=== PATIENT | male | born 1945 | race African-American/Black ===

== ENCOUNTER 2017-12-12 16:15 | Inpatient (IN) | payer OTHER ==
[~2017-12-12] VITALS: Ht 171.4 cm; Wt 72.6 kg
[2017-12-12] MEDS ORDERED: KETOROLAC 30MG/ML VIAL IV STA (18:46)
[2017-12-12 19:05] LABS: BASOPHILS % 0.4 % (0.0-2.0); EOSINOPHILS % 0.6 % (0.0-5.0); HEMOGLOBIN. 16.1 g/dL (14.0-18.0); LYMPHOCYTES % 10.5 % (20.0-50.0); MEAN CORPUSCULAR HEMOGLOBIN 28.7 pg (28.0-32.0); MEAN CORPUSCULAR VOLUME 87.3 fL (80.0-94.0); MEAN PLATELET VOLUME 6.9 fl (7.4-10.4); MONOCYTES % 9.6 % (2.0-8.0); NEUTROPHILS % 78.9 % (40.0-76.0); PLATELET 217 x1000/uL (130-400); RED BLOOD CELL COUNT 5.61 mill/uL (4.7-6.1); RED CELL DISTRIBUTION WIDTH 15.1 % (11.6-14.6)
[2017-12-12 19:09] LABS: CHLORIDE 102 mEq/L (98-107)
[2017-12-12 20:11] LABS: CLARITY URINE CLOUDY (CLEAR); COLOR URINE DARK YELLOW (YELLOW); KETONES URINE 1+ (NEGATIVE); LEUKOCYTE ESTERASE URINE 3+ (NEGATIVE); NITRITE URINE POSITIVE (NEGATIVE); OCCULT BLOOD URINE 2+ (NEGATIVE); PH URINE 6.5 (4.5-8.0); PROTEIN URINE 2+ (NEGATIVE); SPECIFIC GRAVITY URINE 1.017 (1.005-1.030); UROBILINOGEN URINE >8.0 E.U./dL (0.2-1.0)
[2017-12-12] MEDS ORDERED: SODIUM CHLORIDE 0.9% 1000ML BAG (SEPSIS BOLUS) IV ONE (21:00)
[2017-12-12] MEDS ORDERED: CEFTRIAXONE 1 G PREMIX 50 ML IV ONE (21:00)
[2017-12-12 23:15] VITALS: BP 126/75
[2017-12-12 23:50] VITALS: BP 126/75
[2017-12-13] MEDS ORDERED: TAMS0.4C31 PO (00:27)
[2017-12-13] MEDS ORDERED: WARF5TAB73 PO (00:27)
[2017-12-13] MEDS ORDERED: AMLO10TA80 PO (00:27)
[2017-12-13] MEDS ORDERED: AMOX125S8 PO (00:28)
[2017-12-13] MEDS ORDERED: LISI40TA4 PO (00:28)
[2017-12-13] MEDS ORDERED: LOVA20TA2 PO (00:28)
[2017-12-13] MEDS ORDERED: ONDANSETRON HCL 4MG/2ML VIAL IV PRN (01:15)
[2017-12-13] MEDS ORDERED: CLONIDINE 0.1MG TABLET PO PRN (01:30)
[2017-12-13] MEDS ORDERED: LACTULOSE 20G/30ML UDC PO PRN (01:30)
[2017-12-13] MEDS ORDERED: HYDROCODONE/ACETAMINOPHEN 5/325MG TABLET PO PRN (01:30)
[2017-12-13] MEDS: SODIUM CHLORIDE 0.45% 1,000 ML IV SCH ×3 (02:04→20:47)
[2017-12-13] MEDS: PIPERACILLIN/TAZ 3.375G PREMIX 50 ML IV SCH ×3 (02:04→16:26)
[2017-12-13 04:00] VITALS: BP 96/55
[2017-12-13 07:50] LABS: INR 1.5; PROTHROMBIN TIME 15.3 sec (9.4-11.6)
[2017-12-13 08:00] VITALS: BP 115/78
[2017-12-13] MEDS: PANTOPRAZOLE 40MG DR TABLET PO SCH (08:00)
[2017-12-13] MEDS: AMLODIPINE 10MG TABLET PO SCH (08:36)
[2017-12-13 09:41] LABS: HEMATOCRIT. 42.6 % (42.0-52.0); HEMOGLOBIN. 14.1 g/dL (14.0-18.0); MEAN CORPUSCULAR HEMOGLOBIN 28.5 pg (28.0-32.0); MEAN CORPUSCULAR VOLUME 86.4 fL (80.0-94.0); MEAN PLATELET VOLUME 7.4 fl (7.4-10.4); PLATELET 188 x1000/uL (130-400); RED BLOOD CELL COUNT 4.93 mill/uL (4.7-6.1); RED CELL DISTRIBUTION WIDTH 15.1 % (11.6-14.6)
[2017-12-13 12:00] VITALS: BP 100/72
[2017-12-13 14:41] LABS: PLATELET ESTIMATE NORMAL
[2017-12-13 16:00] VITALS: BP 103/62
[2017-12-13] MEDS ORDERED: WARFARIN SODIUM 5MG TABLET PO NR (18:00)
[2017-12-13] MEDS ORDERED: WARFARIN SODIUM 1MG TABLET PO SCH (18:00)
[2017-12-13 20:00] VITALS: BP 115/69
[2017-12-14] VITALS: BP 123/79
[2017-12-14] MEDS: PIPERACILLIN/TAZ 3.375G PREMIX 50 ML IV SCH ×3 (01:52→17:13)
[2017-12-14 04:00] VITALS: BP 127/80
[2017-12-14 05:30] LABS: INR 1.3; PROTHROMBIN TIME 13.8 sec (9.4-11.6)
[2017-12-14 05:36] LABS: CHLORIDE 105 mEq/L (98-107)
[2017-12-14 05:41] LABS: BASOPHILS % 0.1 % (0.0-2.0); EOSINOPHILS % 3.8 % (0.0-5.0); HEMATOCRIT. 41.8 % (42.0-52.0); HEMOGLOBIN. 13.9 g/dL (14.0-18.0); MEAN CORPUSCULAR HEMOGLOBIN 28.8 pg (28.0-32.0); MEAN CORPUSCULAR VOLUME 86.9 fL (80.0-94.0); MEAN PLATELET VOLUME 7.2 fl (7.4-10.4); MONOCYTES % 13.9 % (2.0-8.0); NEUTROPHILS % 55.2 % (40.0-76.0); PLATELET 191 x1000/uL (130-400); RED BLOOD CELL COUNT 4.81 mill/uL (4.7-6.1); RED CELL DISTRIBUTION WIDTH 15.2 % (11.6-14.6)
[2017-12-14 05:42] LABS: HDL CHOLESTEROL 29 mg/dL (40-59); LDL CHOLESTEROL 51 mg/dL (5-100)
[2017-12-14] MEDS: SODIUM CHLORIDE 0.45% 1,000 ML IV SCH ×2 (07:23→16:37)
[2017-12-14] MEDS: PANTOPRAZOLE 40MG DR TABLET PO SCH (07:23)
[2017-12-14 08:00] VITALS: BP 118/88
[2017-12-14] MEDS: AMLODIPINE 10MG TABLET PO SCH (08:38)
[2017-12-14] MEDS ORDERED: POTASSIUM CHLORIDE 10MEQ TABLET SR PO NR (13:00)
[2017-12-14 13:31] VITALS: BP 111/72
[2017-12-14 16:00] VITALS: BP 131/83
[2017-12-14] MEDS ORDERED: WARFARIN SODIUM 5MG TABLET PO NR (18:00)
[2017-12-15] MEDS ORDERED: FAMOTIDINE 20MG TABLET PO SCH (09:00)
== END 2017-12-14 17:46 | disposition home or self-care (01) | DRG 872 ==
LOC: ER 16:37 → 7WST 21:57 → ENRESERV 22:18
PROVIDERS: ADMIT Internal Medicine; ATTEND Internal Medicine
DX: A41.9 Sepsis, unspecified organism (principal); N39.0 Urinary tract infection, site not specified; E66.9 Obesity, unspecified; I12.9 Hypertensive chronic kidney disease with stage 1 through stage 4 chronic kidney disease, or unspecified chronic kidney disease; N18.9 Chronic kidney disease, unspecified; N40.0 Benign prostatic hyperplasia without lower urinary tract symptoms; Z86.73 Personal history of transient ischemic attack (TIA), and cerebral infarction without residual deficits; Z79.899 Other long term (current) drug therapy; Z68.24 Body mass index [BMI] 24.0-24.9, adult
CPT/HCPCS: 36415; 76770; 80048; 80053; 80061; 81001; 83605; 83690; 85025; 85610; 87040; 87077; 87086; 87186; 93005; 96365; 96375; 99291; J0696; J1885; J2543; J7030; J7050

== ENCOUNTER 2021-07-23 20:48 | Inpatient (IN) | payer OTHER, MEDICAID ==
[~2021-07-23] VITALS: Ht 170.2 cm; Wt 113.9 kg
[~2021-07-23 20:48] MED LIST: AMLO10TA80 PO; LISI40TA13 PO; LOVA20TA2 PO; TAMS0.4C31 PO; WARF-53 PO
[2021-07-23] MEDS ORDERED: CEFTRIAXONE 1 G PREMIX 50 ML IV ONE (21:15)
[2021-07-23] MEDS ORDERED: AZITHROMYCIN 500 MG in DEXT 5% WATER 250 ML IV ONE (21:15)
[2021-07-23 22:04] LABS: BG BASE EXCESS -4.6 mmol/L (-2.0-2.0); BG CARBOXYHEMOGLOBIN 0.3 % (0.5-1.5); BG DEOXYHEMOGLOBIN 11.2 % (0.0-5.0); BG FRACTION INSPIRED OXYGEN 100; BG METHEMOGLOBIN 0.3 % (0.0-1.5); BG OXYGEN SATURATION 88.7 % (92.0-98.5); BG OXYHEMOGLOBIN 88.2 % (94.0-97.0); BG PCO2 32.5 mmHg (35.0-45.0); BG PH 7.385 (7.350-7.450); BG PO2 59.1 mmHg (75.0-100.0); BG SAMPLE SITE LEFT RADIAL; BG TOTAL HEMOGLOBIN 18.9 g/dL (12.0-18.0); BG VENT MODE MASK - NRB
[2021-07-23 22:05] LABS: BASOPHILS % 0.2 % (0.0-2.0); HEMATOCRIT. 51.8 % (42.0-52.0); LYMPHOCYTES % 10.8 % (20.0-50.0); MEAN CORPUSCULAR HEMOGLOBIN 28.7 pg (28.0-32.0); MEAN CORPUSCULAR VOLUME 82.8 fL (80.0-94.0); MEAN PLATELET VOLUME 6.7 fl (7.4-10.4); MONOCYTES % 9.9 % (2.0-8.0); NEUTROPHILS % 79.1 % (40.0-76.0); PLATELET 199 x1000/uL (130-400); RED BLOOD CELL COUNT 6.26 mill/uL (4.7-6.1); RED CELL DISTRIBUTION WIDTH 15.5 % (11.6-14.6)
[2021-07-23 22:11] LABS: CHLORIDE 102 mEq/L (98-107)
[2021-07-23 22:14] LABS: D-DIMER 1.44 mg/L FEU (<0.50); INR 1.1
[2021-07-24] VITALS (36 sets, daily range): BP systolic 91–152; BP diastolic 46–129
[2021-07-24 01:50] LABS: CLARITY URINE CLOUDY (CLEAR); COLOR URINE YELLOW (YELLOW); KETONES URINE TRACE (NEGATIVE); LEUKOCYTE ESTERASE URINE NEGATIVE (NEGATIVE); NITRITE URINE NEGATIVE (NEGATIVE); OCCULT BLOOD URINE 2+ (NEGATIVE); PROTEIN URINE 2+ (NEGATIVE); SPECIFIC GRAVITY URINE 1.017 (1.005-1.030)
[2021-07-24] MEDS ORDERED: LORAZEPAM 0.5MG TABLET PO PRN (11:30)
[2021-07-24] MEDS ORDERED: GUAIFENESIN 200MG/10ML SUGAR FREE UDC PO PRN (11:30)
[2021-07-24] MEDS ORDERED: NA PHOS,M-B/NA PHOS,DI-BA ENEMA 118ML PR PRN (11:30)
[2021-07-24] MEDS ORDERED: MORPHINE SULFATE 2 MG/ML CPJ (NOT FOR IM USE) IV PRN (11:30)
[2021-07-24] MEDS ORDERED: HYDROCODONE/ACETAMINOPHEN 5/325MG TABLET PO PRN (11:30)
[2021-07-24] MEDS ORDERED: DIPHENHYDRAMINE 50MG/ML VIAL IV PRN (11:30)
[2021-07-24] MEDS ORDERED: SODIUM CHLORIDE 0.45% 1,000 ML IV SCH (11:30)
[2021-07-24] MEDS ORDERED: CEFTRIAXONE 1 G PREMIX 50 ML IV SCH (11:30)
[2021-07-24] MEDS ORDERED: DOCUSATE SODIUM 100MG CAPSULE PO PRN (11:30)
[2021-07-24] MEDS ORDERED: MAGNESIUM/ALUMINUM HYDROXIDE/SIMETHICONE 30ML UDC PO PRN (11:30)
[2021-07-24] MEDS ORDERED: ACETAMINOPHEN 650MG SUPP PR PRN (11:30)
[2021-07-24] MEDS ORDERED: NALOXONE HCL 0.4MG/ML VIAL IV PRN (11:45)
[2021-07-24 12:03] LABS: BG BASE EXCESS -5.6 mmol/L (-2.0-2.0); BG CARBOXYHEMOGLOBIN 0.3 % (0.5-1.5); BG DEOXYHEMOGLOBIN 4.1 % (0.0-5.0); BG FRACTION INSPIRED OXYGEN 100; BG HCO3 ACT 18.3 mmol/L (22.0-26.0); BG METHEMOGLOBIN 0.5 % (0.0-1.5); BG OXYGEN SATURATION 95.9 % (92.0-98.5); BG OXYHEMOGLOBIN 95.1 % (94.0-97.0); BG PCO2 32.9 mmHg (35.0-45.0); BG PH 7.364 (7.350-7.450); BG PO2 82.7 mmHg (75.0-100.0); BG SAMPLE SITE LEFT RADIAL; BG TOTAL HEMOGLOBIN 19.7 g/dL (12.0-18.0); BG VENT MODE HIGH FLOW
[2021-07-24 12:55] LABS: BASOPHILS % 0.2 % (0.0-2.0); LYMPHOCYTES % 8.1 % (20.0-50.0); MEAN CORPUSCULAR HEMOGLOBIN 28.8 pg (28.0-32.0); MEAN CORPUSCULAR VOLUME 83.5 fL (80.0-94.0); MEAN PLATELET VOLUME 6.6 fl (7.4-10.4); MONOCYTES % 4.4 % (2.0-8.0); NEUTROPHILS % 87.3 % (40.0-76.0); PLATELET 239 x1000/uL (130-400); RED BLOOD CELL COUNT 6.23 mill/uL (4.7-6.1); RED CELL DISTRIBUTION WIDTH 15.7 % (11.6-14.6)
[2021-07-24 13:01] LABS: CHLORIDE 100 mEq/L (98-107)
[2021-07-24 13:14] LABS: CLARITY URINE CLOUDY (CLEAR); COLOR URINE YELLOW (YELLOW); KETONES URINE NEGATIVE (NEGATIVE); LEUKOCYTE ESTERASE URINE NEGATIVE (NEGATIVE); NITRITE URINE NEGATIVE (NEGATIVE); OCCULT BLOOD URINE 2+ (NEGATIVE); PROTEIN URINE 2+ (NEGATIVE); SPECIFIC GRAVITY URINE 1.016 (1.005-1.030)
[2021-07-24] MEDS: AZITHROMYCIN 500 MG in DEXT 5% WATER 250 ML IV SCH (13:18)
[2021-07-24] MEDS: CEFTRIAXONE 1,000 MG in DEXTROSE 5% WATER 50 ML IV SCH (13:18)
[2021-07-24] MEDS: DEXAMETHASONE 10 MG/ML VIAL IV SCH (13:18)
[2021-07-24] MEDS: ENOXAPARIN 30MG/0.3ML SYR SUBCUT SCH (13:23)
[2021-07-24 13:40] LABS: *AMPHETAMINES SCREEN URINE NEGATIVE (NEGATIVE); *BARBITURATES SCREEN URINE NEGATIVE (NEGATIVE); *BENZODIAZEPINES SCREEN URINE NEGATIVE (NEGATIVE); *COCAINE SCREEN URINE NEGATIVE (NEGATIVE); METHADONE URINE SCREEN NEGATIVE (NEGATIVE); OPIATES URINE SCREEN NEGATIVE (NEGATIVE)
[2021-07-24 13:41] LABS: CANNABINOID URINE SCREEN NEGATIVE (NEGATIVE); PHENCYCLIDINE URINE SCREEN NEGATIVE (NEGATIVE)
[2021-07-24] MEDS: SODIUM CHLORIDE 0.9% 1,000 ML IV SCH (15:06)
[2021-07-24] MEDS ORDERED: HYDR25TA PO (16:08)
[2021-07-24] MEDS ORDERED: NAPR-681 MT (16:08)
[2021-07-24 16:40] LABS: CREATINE KINASE 440 IU/L (39-308)
[2021-07-24 16:41] LABS: CREATINE KINASE MB FRACTION 5.7 ng/mL (0.5-3.6)
[2021-07-24] MEDS: ALBUTEROL 6.7GM HFA INHALER ORI SCH (21:15)
[2021-07-24 23:11] LABS: CREATINE KINASE 356 IU/L (39-308)
[2021-07-24 23:13] LABS: CREATINE KINASE MB FRACTION 5.2 ng/mL (0.5-3.6)
[2021-07-25] VITALS (44 sets, daily range): BP systolic 102–157; BP diastolic 65–141
[2021-07-25] MEDS: ALBUTEROL 6.7GM HFA INHALER ORI SCH ×4 (01:43→22:51)
[2021-07-25 05:25] LABS: HEMATOCRIT. 47.4 % (42.0-52.0); HEMOGLOBIN. 16.6 g/dL (14.0-18.0); MEAN CORPUSCULAR HEMOGLOBIN 28.9 pg (28.0-32.0); MEAN CORPUSCULAR VOLUME 82.5 fL (80.0-94.0); MEAN PLATELET VOLUME 6.9 fl (7.4-10.4); PLATELET 220 x1000/uL (130-400); RED BLOOD CELL COUNT 5.75 mill/uL (4.7-6.1); RED CELL DISTRIBUTION WIDTH 15.6 % (11.6-14.6)
[2021-07-25 05:36] LABS: CHLORIDE 103 mEq/L (98-107)
[2021-07-25 05:48] LABS: PHOSPHORUS 4.6 mg/dL (2.5-4.9)
[2021-07-25 05:49] LABS: CREATINE KINASE 306 IU/L (39-308); LDL CHOLESTEROL 42 mg/dL (5-100)
[2021-07-25 05:50] LABS: HDL CHOLESTEROL 14 mg/dL (40-59); T4 FREE 1.25 ng/dL (0.76-1.46)
[2021-07-25] MEDS: SODIUM CHLORIDE 0.9% 1,000 ML IV SCH (05:50)
[2021-07-25] MEDS: FAMOTIDINE 20MG/2ML VIAL IV SCH (08:43)
[2021-07-25] MEDS: DEXAMETHASONE 10 MG/ML VIAL IV SCH (08:43)
[2021-07-25 10:08] LABS: BG BASE EXCESS -4.2 mmol/L (-2.0-2.0); BG CARBOXYHEMOGLOBIN 0.3 % (0.5-1.5); BG DEOXYHEMOGLOBIN 3.7 % (0.0-5.0); BG FRACTION INSPIRED OXYGEN 100; BG HCO3 ACT 20.3 mmol/L (22.0-26.0); BG METHEMOGLOBIN 0.2 % (0.0-1.5); BG OXYGEN SATURATION 96.3 % (92.0-98.5); BG OXYHEMOGLOBIN 95.8 % (94.0-97.0); BG PCO2 36.5 mmHg (35.0-45.0); BG PH 7.364 (7.350-7.450); BG PO2 85.7 mmHg (75.0-100.0); BG SAMPLE SITE RIGHT BRACHIAL; BG TOTAL HEMOGLOBIN 17.7 g/dL (12.0-18.0); BG VENT MODE HIGH FLOW
[2021-07-25] MEDS: AZITHROMYCIN 500 MG in DEXT 5% WATER 250 ML IV SCH (12:00)
[2021-07-25] MEDS: ENOXAPARIN 30MG/0.3ML SYR SUBCUT SCH (12:01)
[2021-07-25] MEDS ORDERED: ENOXAPARIN 40MG/0.4ML SYR SUBCUT SCH (13:00)
[2021-07-25] MEDS: CEFTRIAXONE 1,000 MG in DEXTROSE 5% WATER 50 ML IV SCH (13:01)
[2021-07-25 13:24] LABS: PLATELET ESTIMATE NORMAL
[2021-07-26] VITALS: BP 128/89
[2021-07-26 04:00] VITALS: BP 135/87
[2021-07-26 05:35] LABS: HEMATOCRIT. 46.5 % (42.0-52.0); MEAN CORPUSCULAR HEMOGLOBIN 28.4 pg (28.0-32.0); MEAN CORPUSCULAR VOLUME 82.5 fL (80.0-94.0); MEAN PLATELET VOLUME 6.5 fl (7.4-10.4); PLATELET 252 x1000/uL (130-400); RED BLOOD CELL COUNT 5.64 mill/uL (4.7-6.1); RED CELL DISTRIBUTION WIDTH 15.5 % (11.6-14.6)
[2021-07-26] MEDS: ALBUTEROL 6.7GM HFA INHALER ORI SCH ×4 (06:09→17:04)
[2021-07-26] MEDS: SODIUM CHLORIDE 0.9% 1,000 ML IV SCH ×2 (06:11→12:58)
[2021-07-26 06:23] LABS: PHOSPHORUS 4.1 mg/dL (2.5-4.9)
[2021-07-26 07:45] LABS: BG BASE EXCESS -4.1 mmol/L (-2.0-2.0); BG CARBOXYHEMOGLOBIN 0.1 % (0.5-1.5); BG DEOXYHEMOGLOBIN 4.8 % (0.0-5.0); BG HCO3 ACT 20.5 mmol/L (22.0-26.0); BG METHEMOGLOBIN 0.4 % (0.0-1.5); BG OXYGEN SATURATION 95.2 % (92.0-98.5); BG OXYHEMOGLOBIN 94.7 % (94.0-97.0); BG PCO2 36.9 mmHg (35.0-45.0); BG PH 7.363 (7.350-7.450); BG PO2 79.7 mmHg (75.0-100.0); BG SAMPLE SITE RIGHT RADIAL; BG TOTAL HEMOGLOBIN 17.5 g/dL (12.0-18.0); BG VENT MODE VAPOTHERM
[2021-07-26 08:00] VITALS: BP 128/88
[2021-07-26] MEDS: FAMOTIDINE 20MG/2ML VIAL IV SCH (09:04)
[2021-07-26] MEDS: DEXAMETHASONE 10 MG/ML VIAL IV SCH (09:04)
[2021-07-26 09:10] LABS: IMMUNOGLOBULIN A 671 mg/dL (61-437); IMMUNOGLOBULIN G 1365 mg/dL (603-1613); IMMUNOGLOBULIN M 37 mg/dL (15-143)
[2021-07-26 12:00] VITALS: BP 132/82
[2021-07-26] MEDS: AZITHROMYCIN 500 MG in DEXT 5% WATER 250 ML IV SCH ×2 (13:00→15:23)
[2021-07-26] MEDS ORDERED: ENOXAPARIN 80MG/0.8ML SYR SUBCUT SCH (13:00)
[2021-07-26] MEDS: CEFTRIAXONE 1,000 MG in DEXTROSE 5% WATER 50 ML IV SCH (14:06)
[2021-07-26 15:21] LABS: PLATELET ESTIMATE NORMAL
[2021-07-26 16:00] VITALS: BP 131/84
[2021-07-26 20:00] VITALS: BP 159/87
[2021-07-27] VITALS: BP 155/92
[2021-07-27 04:00] VITALS: BP 165/96
[2021-07-27] MEDS: ALBUTEROL 6.7GM HFA INHALER ORI SCH ×4 (05:17→23:02)
[2021-07-27] MEDS: CLONIDINE 0.1MG TABLET PO PRN ×2 (05:18→23:00)
[2021-07-27 08:00] VITALS: BP 145/87
[2021-07-27] MEDS: DEXAMETHASONE 10 MG/ML VIAL IV SCH (08:56)
[2021-07-27] MEDS: ENOXAPARIN 100MG/ML SYR SUBCUT SCH (08:56)
[2021-07-27] MEDS: SODIUM CHLORIDE 0.9% 1,000 ML IV SCH ×2 (08:57→22:34)
[2021-07-27] MEDS: FAMOTIDINE 20MG/2ML VIAL IV SCH (08:57)
[2021-07-27 09:23] LABS: BG BASE EXCESS -3.1 mmol/L (-2.0-2.0); BG DEOXYHEMOGLOBIN 12.3 % (0.0-5.0); BG FRACTION INSPIRED OXYGEN 100; BG HCO3 ACT 20.4 mmol/L (22.0-26.0); BG METHEMOGLOBIN 0.3 % (0.0-1.5); BG OXYGEN SATURATION 87.7 % (92.0-98.5); BG OXYHEMOGLOBIN 87.4 % (94.0-97.0); BG PCO2 32.7 mmHg (35.0-45.0); BG PH 7.412 (7.350-7.450); BG PO2 52.2 mmHg (75.0-100.0); BG SAMPLE SITE LEFT RADIAL; BG TOTAL HEMOGLOBIN 16.7 g/dL (12.0-18.0); BG VENT MODE HIGH FLOW
[2021-07-27 10:44] LABS: BASOPHILS % 0.1 % (0.0-2.0); HEMATOCRIT. 45.8 % (42.0-52.0); HEMOGLOBIN. 16.1 g/dL (14.0-18.0); LYMPHOCYTES % 7.4 % (20.0-50.0); MEAN CORPUSCULAR HEMOGLOBIN 29.5 pg (28.0-32.0); MEAN CORPUSCULAR VOLUME 83.7 fL (80.0-94.0); MEAN PLATELET VOLUME 6.3 fl (7.4-10.4); NEUTROPHILS % 79.5 % (40.0-76.0); PLATELET 265 x1000/uL (130-400); RED BLOOD CELL COUNT 5.48 mill/uL (4.7-6.1); RED CELL DISTRIBUTION WIDTH 15.6 % (11.6-14.6)
[2021-07-27 10:56] LABS: PHOSPHORUS 3.2 mg/dL (2.5-4.9)
[2021-07-27 12:00] VITALS: BP 149/94
[2021-07-27] MEDS: AZITHROMYCIN 500 MG in DEXT 5% WATER 250 ML IV SCH (14:10)
[2021-07-27] MEDS: CEFTRIAXONE 1,000 MG in DEXTROSE 5% WATER 50 ML IV SCH (14:10)
[2021-07-27 14:33] LABS: BG BASE EXCESS -4.1 mmol/L (-2.0-2.0); BG DEOXYHEMOGLOBIN 3.2 % (0.0-5.0); BG FRACTION INSPIRED OXYGEN 100; BG HCO3 ACT 20.2 mmol/L (22.0-26.0); BG METHEMOGLOBIN 0.2 % (0.0-1.5); BG OXYGEN SATURATION 96.8 % (92.0-98.5); BG OXYHEMOGLOBIN 95.6 % (94.0-97.0); BG PCO2 35.5 mmHg (35.0-45.0); BG PH 7.374 (7.350-7.450); BG PO2 90.8 mmHg (75.0-100.0); BG SAMPLE SITE RIGHT RADIAL; BG TOTAL HEMOGLOBIN 17.1 g/dL (12.0-18.0); BG VENT MODE VAPOTHERM
[2021-07-27] MEDS ORDERED: MAGNESIUM 2 G PREMIX 50 ML IV NR (15:30)
[2021-07-27 16:00] VITALS: BP 152/88
[2021-07-28] VITALS (35 sets, daily range): BP systolic 64–216; BP diastolic 39–117
[2021-07-28] MEDS: ALBUTEROL 6.7GM HFA INHALER ORI SCH ×2 (06:00→21:05)
[2021-07-28 06:48] LABS: HEMATOCRIT. 50.8 % (42.0-52.0); MEAN CORPUSCULAR HEMOGLOBIN 27.9 pg (28.0-32.0); MEAN CORPUSCULAR VOLUME 83.5 fL (80.0-94.0); MEAN PLATELET VOLUME 6.1 fl (7.4-10.4); PLATELET 277 x1000/uL (130-400); RED BLOOD CELL COUNT 6.09 mill/uL (4.7-6.1); RED CELL DISTRIBUTION WIDTH 15.9 % (11.6-14.6)
[2021-07-28] MEDS ORDERED: ETOMIDATE 2MG/ML 10ML VIAL IV ONE (08:33)
[2021-07-28] MEDS ORDERED: SUCCINYLCHOLINE CHLORIDE 200MG/10ML IV ONE (08:33)
[2021-07-28] MEDS: DEXAMETHASONE 10 MG/ML VIAL IV SCH (08:53)
[2021-07-28] MEDS: FAMOTIDINE 20MG/2ML VIAL IV SCH (08:53)
[2021-07-28] MEDS: ENOXAPARIN 100MG/ML SYR SUBCUT SCH (08:54)
[2021-07-28 10:10] LABS: BG BASE EXCESS -4.8 mmol/L (-2.0-2.0); BG CARBOXYHEMOGLOBIN 0.3 % (0.5-1.5); BG DEOXYHEMOGLOBIN 12.1 % (0.0-5.0); BG FRACTION INSPIRED OXYGEN 100; BG HCO3 ACT 18.1 mmol/L (22.0-26.0); BG METHEMOGLOBIN 0.3 % (0.0-1.5); BG OXYGEN SATURATION 87.8 % (92.0-98.5); BG OXYHEMOGLOBIN 87.3 % (94.0-97.0); BG PCO2 29.7 mmHg (35.0-45.0); BG PH 7.402 (7.350-7.450); BG PO2 53.9 mmHg (75.0-100.0); BG SAMPLE SITE RIGHT RADIAL; BG TOTAL HEMOGLOBIN 19.5 g/dL (12.0-18.0); BG VENT MODE HIGH FLOW
[2021-07-28] MEDS: SODIUM CHLORIDE 0.9% 1,000 ML IV SCH (10:36)
[2021-07-28 12:40] LABS: PLATELET ESTIMATE NORMAL
[2021-07-28] MEDS ORDERED: LORAZEPAM 2MG/ML CPJ IV PRN (13:15)
[2021-07-28] MEDS ORDERED: HYDRALAZINE 20MG/ML VIAL IV SCH (13:15)
[2021-07-28] MEDS ORDERED: HYDRALAZINE 20MG/ML VIAL IV PRN (13:15)
[2021-07-28] MEDS: CEFTRIAXONE 1,000 MG in DEXTROSE 5% WATER 50 ML IV SCH (14:44)
[2021-07-28] MEDS ORDERED: PROPOFOL 10MG/ML 100ML 100 ML IV PRN (16:00)
[2021-07-28] MEDS: SODIUM CHLORIDE 0.9% IV PRN (16:53)
[2021-07-28] MEDS: MIDAZOLAM HCL IV PRN (16:53)
[2021-07-28] MEDS ORDERED: NOREPINEPHRINE 8MG/250ML PMX 250 ML IV PRN (17:15)
[2021-07-28] MEDS: MIDODRINE HCL 5MG TABLET PO SCH (17:15)
[2021-07-28] MEDS ORDERED: SODIUM CHLORIDE 0.9% 500 ML IV NR (17:15)
[2021-07-28] MEDS ORDERED: NOREPINEPHRINE 8 MG in DEXTROSE 5% WATER 250 ML IV PRN (17:30)
[2021-07-28] MEDS: PHENYLEPHRINE 50 MG in DEXT 5% WATER 245 ML IV PRN (17:35)
[2021-07-28 17:39] LABS: BG BASE EXCESS -4.9 mmol/L (-2.0-2.0); BG CARBOXYHEMOGLOBIN 0.7 % (0.5-1.5); BG DEOXYHEMOGLOBIN 18.9 % (0.0-5.0); BG HCO3 ACT 20.7 mmol/L (22.0-26.0); BG OXYHEMOGLOBIN 80.4 % (94.0-97.0); BG PCO2 40.5 mmHg (35.0-45.0); BG PH 7.326 (7.350-7.450); BG PO2 48.7 mmHg (75.0-100.0); BG SAMPLE SITE RIGHT RADIAL; BG TOTAL HEMOGLOBIN 17.6 g/dL (12.0-18.0); BG VENT MODE VENT - AC
[2021-07-28] MEDS: PROPOFOL 10MG/ML 100ML 100 ML IV PRN ×3 (18:23→21:51)
[2021-07-28] MEDS: FENTANYL CITRATE/PF 2,500 MCG in SODIUM CHLORIDE 0.9% 200 ML IV PRN (20:17)
[2021-07-29] VITALS (96 sets, daily range): BP systolic 85–165; BP diastolic 54–99
[2021-07-29] MEDS: PROPOFOL 10MG/ML 100ML 100 ML IV PRN ×5 (01:27→15:00)
[2021-07-29] MEDS: MIDAZOLAM HCL IV PRN ×3 (01:37→20:08)
[2021-07-29] MEDS: SODIUM CHLORIDE 0.9% IV PRN ×3 (01:37→20:08)
[2021-07-29 04:52] LABS: HEMATOCRIT. 51.2 % (42.0-52.0); HEMOGLOBIN. 17.2 g/dL (14.0-18.0); MEAN CORPUSCULAR HEMOGLOBIN 28.6 pg (28.0-32.0); MEAN CORPUSCULAR VOLUME 85.1 fL (80.0-94.0); MEAN PLATELET VOLUME 6.2 fl (7.4-10.4); PLATELET 272 x1000/uL (130-400); RED BLOOD CELL COUNT 6.02 mill/uL (4.7-6.1); RED CELL DISTRIBUTION WIDTH 16.2 % (11.6-14.6)
[2021-07-29 05:08] LABS: PHOSPHORUS 4.8 mg/dL (2.5-4.9)
[2021-07-29] MEDS: FAMOTIDINE 20MG/2ML VIAL IV SCH (08:05)
[2021-07-29] MEDS: ENOXAPARIN 100MG/ML SYR SUBCUT SCH ×2 (08:05→21:25)
[2021-07-29] MEDS: MIDODRINE HCL 5MG TABLET PO SCH ×3 (08:05→16:52)
[2021-07-29] MEDS: DEXAMETHASONE 10 MG/ML VIAL IV SCH (08:05)
[2021-07-29] MEDS ORDERED: LIDOCAINE HCL 1% 20ML VIAL (Pyxis) INJ ONE (08:32)
[2021-07-29] MEDS: ALBUTEROL 6.7GM HFA INHALER ORI SCH ×3 (08:35→20:41)
[2021-07-29 09:00] LABS: NUCLEATED RED BLOOD CELLS 1 /100 WBC; PLATELET ESTIMATE NORMAL
[2021-07-29 09:26] LABS: BG CARBOXYHEMOGLOBIN 0.3 % (0.5-1.5); BG DEOXYHEMOGLOBIN 4.1 % (0.0-5.0); BG FRACTION INSPIRED OXYGEN 100; BG HCO3 ACT 24.6 mmol/L (22.0-26.0); BG METHEMOGLOBIN 0.6 % (0.0-1.5); BG OXYGEN SATURATION 95.9 % (92.0-98.5); BG PCO2 52.5 mmHg (35.0-45.0); BG PH 7.289 (7.350-7.450); BG PO2 88.8 mmHg (75.0-100.0); BG SAMPLE SITE RIGHT BRACHIAL; BG VENT MODE VENT - AC
[2021-07-29] MEDS ORDERED: SODIUM BICARBONATE 8.4% 1 MEQ/ML 50ML SYR IV ONE (09:45)
[2021-07-29] MEDS: PHENYLEPHRINE 50 MG in DEXT 5% WATER 245 ML IV PRN (09:47)
[2021-07-29 11:29] LABS: BG BASE EXCESS -0.3 mmol/L (-2.0-2.0); BG CARBOXYHEMOGLOBIN 0.4 % (0.5-1.5); BG DEOXYHEMOGLOBIN 4.7 % (0.0-5.0); BG FRACTION INSPIRED OXYGEN 100; BG HCO3 ACT 26.7 mmol/L (22.0-26.0); BG METHEMOGLOBIN 0.5 % (0.0-1.5); BG OXYGEN SATURATION 95.3 % (92.0-98.5); BG OXYHEMOGLOBIN 94.4 % (94.0-97.0); BG PCO2 51.5 mmHg (35.0-45.0); BG PH 7.332 (7.350-7.450); BG PO2 78.9 mmHg (75.0-100.0); BG SAMPLE SITE LEFT RADIAL; BG TOTAL HEMOGLOBIN 18.6 g/dL (12.0-18.0); BG TOTAL RESPIRATORY RATE 27 b/min; BG VENT MODE VENT - AC
[2021-07-29] MEDS: PIPERACILLIN/TAZOBACTAM 3.375 G in DEXTROSE 5% WATER 50 ML IV SCH ×2 (14:48→21:25)
[2021-07-29] MEDS: FENTANYL CITRATE/PF 2,500 MCG in SODIUM CHLORIDE 0.9% 200 ML IV PRN (21:56)
[2021-07-30] VITALS (117 sets, daily range): BP systolic 77–139; BP diastolic 47–89
[2021-07-30] MEDS: ALBUTEROL 6.7GM HFA INHALER ORI SCH ×4 (00:55→21:03)
[2021-07-30] MEDS ORDERED: MIDAZOLAM HCL 100 MG in SODIUM CHLORIDE 0.9% 80 ML IV PRN (03:15)
[2021-07-30 05:27] LABS: HEMATOCRIT. 48.5 % (42.0-52.0); HEMOGLOBIN. 16.4 g/dL (14.0-18.0); MEAN CORPUSCULAR HEMOGLOBIN 28.2 pg (28.0-32.0); MEAN CORPUSCULAR VOLUME 83.5 fL (80.0-94.0); MEAN PLATELET VOLUME 6.6 fl (7.4-10.4); PLATELET 246 x1000/uL (130-400)
[2021-07-30] MEDS: PROPOFOL 10MG/ML 100ML 100 ML IV PRN ×5 (05:30→18:40)
[2021-07-30 05:51] LABS: PHOSPHORUS 4.6 mg/dL (2.5-4.9)
[2021-07-30] MEDS: PIPERACILLIN/TAZOBACTAM 3.375 G in DEXTROSE 5% WATER 50 ML IV SCH ×3 (05:57→21:18)
[2021-07-30] MEDS: SODIUM CHLORIDE 0.9% IV PRN (06:34)
[2021-07-30] MEDS: MIDAZOLAM HCL IV PRN (06:34)
[2021-07-30 06:42] LABS: BG BASE EXCESS -0.2 mmol/L (-2.0-2.0); BG CARBOXYHEMOGLOBIN 1.1 % (0.5-1.5); BG DEOXYHEMOGLOBIN 21.3 % (0.0-5.0); BG FRACTION INSPIRED OXYGEN 100; BG METHEMOGLOBIN 0.2 % (0.0-1.5); BG OXYGEN SATURATION 78.4 % (92.0-98.5); BG OXYHEMOGLOBIN 77.4 % (94.0-97.0); BG PCO2 42.7 mmHg (35.0-45.0); BG PH 7.385 (7.350-7.450); BG PO2 43.3 mmHg (75.0-100.0); BG SAMPLE SITE LEFT BRACHIAL; BG VENT MODE VENT - AC
[2021-07-30] MEDS ORDERED: DILTIAZEM HCL 5MG/ML 5ML VIAL IV NR (07:15)
[2021-07-30] MEDS: ENOXAPARIN 100MG/ML SYR SUBCUT SCH ×2 (08:12→21:18)
[2021-07-30] MEDS: DEXAMETHASONE 10 MG/ML VIAL IV SCH (08:12)
[2021-07-30] MEDS: MIDODRINE HCL 5MG TABLET PO SCH ×3 (08:12→16:04)
[2021-07-30] MEDS: FAMOTIDINE 20MG/2ML VIAL IV SCH (08:12)
[2021-07-30 09:07] LABS: NUCLEATED RED BLOOD CELLS 9 /100 WBC; PLATELET ESTIMATE NORMAL
[2021-07-30] MEDS: DILTIAZEM HCL 125 MG in DEXT 5% WATER 100 ML IV PRN (09:28)
[2021-07-30 11:33] LABS: BG BASE EXCESS -5.8 mmol/L (-2.0-2.0); BG CARBOXYHEMOGLOBIN 0.1 % (0.5-1.5); BG DEOXYHEMOGLOBIN 9.4 % (0.0-5.0); BG FRACTION INSPIRED OXYGEN 100; BG HCO3 ACT 21.2 mmol/L (22.0-26.0); BG METHEMOGLOBIN 0.6 % (0.0-1.5); BG OXYGEN SATURATION 90.5 % (92.0-98.5); BG OXYHEMOGLOBIN 89.9 % (94.0-97.0); BG PCO2 46.7 mmHg (35.0-45.0); BG PH 7.275 (7.350-7.450); BG PO2 64.4 mmHg (75.0-100.0); BG SAMPLE SITE RIGHT RADIAL; BG TOTAL HEMOGLOBIN 18.4 g/dL (12.0-18.0); BG VENT MODE VENT - AC
[2021-07-30] MEDS: FENTANYL CITRATE/PF 2,500 MCG in SODIUM CHLORIDE 0.9% 200 ML IV PRN (12:20)
[2021-07-30] MEDS ORDERED: SODIUM BICARBONATE 8.4% 1 MEQ/ML 50ML SYR IV NR (13:45)
[2021-07-30] MEDS: PHENYLEPHRINE 50 MG in DEXT 5% WATER 245 ML IV PRN (13:53)
[2021-07-30 15:24] LABS: BG BASE EXCESS -1.6 mmol/L (-2.0-2.0); BG CARBOXYHEMOGLOBIN 0.7 % (0.5-1.5); BG DEOXYHEMOGLOBIN 8.8 % (0.0-5.0); BG FRACTION INSPIRED OXYGEN 100; BG HCO3 ACT 26.1 mmol/L (22.0-26.0); BG METHEMOGLOBIN 0.5 % (0.0-1.5); BG OXYGEN SATURATION 91.1 % (92.0-98.5); BG PCO2 54.5 mmHg (35.0-45.0); BG PH 7.298 (7.350-7.450); BG PO2 63.4 mmHg (75.0-100.0); BG SAMPLE SITE RIGHT RADIAL; BG TOTAL HEMOGLOBIN 17.6 g/dL (12.0-18.0); BG VENT MODE VENT - AC
[2021-07-30] MEDS: MIDAZOLAM HCL 100 MG in SODIUM CHLORIDE 0.9% 80 ML IV PRN (15:26)
[2021-07-31] VITALS (100 sets, daily range): BP systolic 90–147; BP diastolic 46–97
[2021-07-31] MEDS: FENTANYL CITRATE/PF 2,500 MCG in SODIUM CHLORIDE 0.9% 200 ML IV PRN ×2 (02:34→15:34)
[2021-07-31] MEDS: ALBUTEROL 6.7GM HFA INHALER ORI SCH ×3 (02:34→14:28)
[2021-07-31] MEDS: MIDAZOLAM HCL 100 MG in SODIUM CHLORIDE 0.9% 80 ML IV PRN ×2 (02:35→14:42)
[2021-07-31] MEDS: PROPOFOL 10MG/ML 100ML 100 ML IV PRN ×2 (02:38→15:36)
[2021-07-31] MEDS: PIPERACILLIN/TAZOBACTAM 3.375 G in DEXTROSE 5% WATER 50 ML IV SCH ×3 (05:29→22:37)
[2021-07-31 06:18] LABS: HEMATOCRIT. 48.6 % (42.0-52.0); HEMOGLOBIN. 16.4 g/dL (14.0-18.0); MEAN CORPUSCULAR HEMOGLOBIN 28.4 pg (28.0-32.0); MEAN CORPUSCULAR VOLUME 84.3 fL (80.0-94.0); PLATELET 299 x1000/uL (130-400); RED BLOOD CELL COUNT 5.76 mill/uL (4.7-6.1); RED CELL DISTRIBUTION WIDTH 16.1 % (11.6-14.6)
[2021-07-31 06:32] LABS: PHOSPHORUS 5.2 mg/dL (2.5-4.9)
[2021-07-31 07:50] LABS: BG CARBOXYHEMOGLOBIN 1.1 % (0.5-1.5); BG DEOXYHEMOGLOBIN 9.9 % (0.0-5.0); BG HCO3 ACT 26.2 mmol/L (22.0-26.0); BG METHEMOGLOBIN 0.4 % (0.0-1.5); BG OXYGEN SATURATION 89.9 % (92.0-98.5); BG OXYHEMOGLOBIN 88.6 % (94.0-97.0); BG PCO2 52.6 mmHg (35.0-45.0); BG PH 7.315 (7.350-7.450); BG SAMPLE SITE RIGHT RADIAL; BG VENT MODE VENT - AC
[2021-07-31] MEDS: MIDODRINE HCL 5MG TABLET PO SCH ×3 (08:50→18:25)
[2021-07-31] MEDS: FAMOTIDINE 20MG/2ML VIAL IV SCH (08:50)
[2021-07-31] MEDS: DEXAMETHASONE 10 MG/ML VIAL IV SCH (08:51)
[2021-07-31] MEDS: ENOXAPARIN 100MG/ML SYR SUBCUT SCH ×2 (08:52→21:04)
[2021-07-31 13:43] LABS: BG BASE EXCESS -0.6 mmol/L (-2.0-2.0); BG CARBOXYHEMOGLOBIN 0.7 % (0.5-1.5); BG DEOXYHEMOGLOBIN 13.2 % (0.0-5.0); BG HCO3 ACT 26.9 mmol/L (22.0-26.0); BG METHEMOGLOBIN 0.2 % (0.0-1.5); BG OXYGEN SATURATION 86.7 % (92.0-98.5); BG OXYHEMOGLOBIN 85.9 % (94.0-97.0); BG PCO2 54.8 mmHg (35.0-45.0); BG PH 7.309 (7.350-7.450); BG PO2 54.5 mmHg (75.0-100.0); BG SAMPLE SITE RIGHT RADIAL; BG TOTAL HEMOGLOBIN 17.2 g/dL (12.0-18.0); BG VENT MODE VENT - AC
[2021-07-31] MEDS: PHENYLEPHRINE 50 MG in DEXT 5% WATER 245 ML IV PRN (15:32)
[2021-07-31 16:01] LABS: PLATELET ESTIMATE NORMAL
[2021-08-01] VITALS (95 sets, daily range): BP systolic 92–138; BP diastolic 57–98
[2021-08-01] MEDS: MIDAZOLAM HCL 100 MG in SODIUM CHLORIDE 0.9% 80 ML IV PRN ×3 (02:29→23:26)
[2021-08-01 05:52] LABS: HEMATOCRIT. 48.3 % (42.0-52.0); HEMOGLOBIN. 15.6 g/dL (14.0-18.0); MEAN CORPUSCULAR VOLUME 86.3 fL (80.0-94.0); PLATELET 298 x1000/uL (130-400); RED BLOOD CELL COUNT 5.59 mill/uL (4.7-6.1); RED CELL DISTRIBUTION WIDTH 16.5 % (11.6-14.6)
[2021-08-01] MEDS: FENTANYL CITRATE/PF 2,500 MCG in SODIUM CHLORIDE 0.9% 200 ML IV PRN ×2 (05:59→18:26)
[2021-08-01] MEDS: PIPERACILLIN/TAZOBACTAM 3.375 G in DEXTROSE 5% WATER 50 ML IV SCH ×2 (06:01→13:51)
[2021-08-01 06:06] LABS: PHOSPHORUS 4.8 mg/dL (2.5-4.9)
[2021-08-01 07:58] LABS: PLATELET ESTIMATE NORMAL
[2021-08-01] MEDS: MIDODRINE HCL 5MG TABLET PO SCH ×3 (08:11→17:14)
[2021-08-01] MEDS: FAMOTIDINE 20MG/2ML VIAL IV SCH (08:11)
[2021-08-01 08:44] LABS: BG BASE EXCESS -2.6 mmol/L (-2.0-2.0); BG CARBOXYHEMOGLOBIN 0.4 % (0.5-1.5); BG DEOXYHEMOGLOBIN 12.8 % (0.0-5.0); BG FRACTION INSPIRED OXYGEN 100; BG HCO3 ACT 24.5 mmol/L (22.0-26.0); BG METHEMOGLOBIN 0.3 % (0.0-1.5); BG OXYGEN SATURATION 87.1 % (92.0-98.5); BG OXYHEMOGLOBIN 86.5 % (94.0-97.0); BG PCO2 50.8 mmHg (35.0-45.0); BG PH 7.301 (7.350-7.450); BG PO2 53.7 mmHg (75.0-100.0); BG SAMPLE SITE RIGHT BRACHIAL; BG TOTAL HEMOGLOBIN 16.5 g/dL (12.0-18.0); BG VENT MODE VENT - AC
[2021-08-01] MEDS ORDERED: DEXAMETHASONE 10 MG/ML VIAL IV SCH (09:00)
[2021-08-01] MEDS: ALBUTEROL 6.7GM HFA INHALER ORI SCH ×3 (09:25→20:30)
[2021-08-01 13:14] LABS: BG BASE EXCESS -0.7 mmol/L (-2.0-2.0); BG CARBOXYHEMOGLOBIN 1.2 % (0.5-1.5); BG DEOXYHEMOGLOBIN 10.6 % (0.0-5.0); BG FRACTION INSPIRED OXYGEN 100; BG HCO3 ACT 26.8 mmol/L (22.0-26.0); BG METHEMOGLOBIN 0.3 % (0.0-1.5); BG OXYGEN SATURATION 89.2 % (92.0-98.5); BG OXYHEMOGLOBIN 87.9 % (94.0-97.0); BG PCO2 54.8 mmHg (35.0-45.0); BG PH 7.308 (7.350-7.450); BG PO2 61.5 mmHg (75.0-100.0); BG SAMPLE SITE RIGHT RADIAL; BG TOTAL HEMOGLOBIN 16.7 g/dL (12.0-18.0); BG TOTAL RESPIRATORY RATE 30 b/min; BG VENT MODE VENT - AC
[2021-08-01] MEDS: PROPOFOL 10MG/ML 100ML 100 ML IV PRN (18:29)
[2021-08-01] MEDS: MEROPENEM 1,000 MG in SODIUM CHLORIDE 0.9% 100 ML IV SCH (20:18)
[2021-08-01] MEDS: ENOXAPARIN 100MG/ML SYR SUBCUT SCH (21:21)
[2021-08-02] VITALS (85 sets, daily range): BP systolic 75–145; BP diastolic 46–87
[2021-08-02] MEDS: ALBUTEROL 6.7GM HFA INHALER ORI SCH ×5 (00:10→20:45)
[2021-08-02 05:48] LABS: BG BASE EXCESS -0.8 mmol/L (-2.0-2.0); BG CARBOXYHEMOGLOBIN 1.4 % (0.5-1.5); BG DEOXYHEMOGLOBIN 19.3 % (0.0-5.0); BG FRACTION INSPIRED OXYGEN 100; BG HCO3 ACT 25.2 mmol/L (22.0-26.0); BG METHEMOGLOBIN 0.3 % (0.0-1.5); BG OXYGEN SATURATION 80.4 % (92.0-98.5); BG PCO2 46.1 mmHg (35.0-45.0); BG PH 7.355 (7.350-7.450); BG PO2 44.8 mmHg (75.0-100.0); BG SAMPLE SITE RIGHT RADIAL; BG TOTAL HEMOGLOBIN 16.8 g/dL (12.0-18.0); BG VENT MODE VENT - AC
[2021-08-02] MEDS: PROPOFOL 10MG/ML 100ML 100 ML IV PRN (05:56)
[2021-08-02] MEDS: FENTANYL CITRATE/PF 2,500 MCG in SODIUM CHLORIDE 0.9% 200 ML IV PRN (05:56)
[2021-08-02 05:57] LABS: HEMATOCRIT. 50.9 % (42.0-52.0); HEMOGLOBIN. 16.6 g/dL (14.0-18.0); MEAN CORPUSCULAR VOLUME 86.1 fL (80.0-94.0); MEAN PLATELET VOLUME 7.2 fl (7.4-10.4); PLATELET 320 x1000/uL (130-400); RED BLOOD CELL COUNT 5.91 mill/uL (4.7-6.1); RED CELL DISTRIBUTION WIDTH 16.4 % (11.6-14.6)
[2021-08-02] MEDS: ACETAMINOPHEN 325MG TABLET PO PRN (05:57)
[2021-08-02 06:27] LABS: PHOSPHORUS 3.8 mg/dL (2.5-4.9)
[2021-08-02] MEDS ORDERED: FUROSEMIDE 100MG/10ML VIAL IVP SCH (07:45)
[2021-08-02] MEDS ORDERED: SODIUM POLYSTYRENE SULFONATE 15 G/60 ML BOT NG SCH (08:00)
[2021-08-02 08:13] LABS: PLATELET ESTIMATE NORMAL
[2021-08-02] MEDS: MEROPENEM 1,000 MG in SODIUM CHLORIDE 0.9% 100 ML IV SCH ×2 (08:16→20:35)
[2021-08-02] MEDS: DEXAMETHASONE 4MG/ML 1ML VIAL IV SCH (08:17)
[2021-08-02] MEDS: MIDODRINE HCL 5MG TABLET PO SCH ×3 (08:19→17:00)
[2021-08-02] MEDS: FAMOTIDINE 20MG/2ML VIAL IV SCH (08:22)
[2021-08-02] MEDS: PHENYLEPHRINE 50 MG in DEXT 5% WATER 245 ML IV PRN (08:59)
[2021-08-02 09:57] LABS: BG BASE EXCESS -2.9 mmol/L (-2.0-2.0); BG CARBOXYHEMOGLOBIN 0.9 % (0.5-1.5); BG DEOXYHEMOGLOBIN 27.6 % (0.0-5.0); BG FRACTION INSPIRED OXYGEN 100; BG METHEMOGLOBIN 0.3 % (0.0-1.5); BG OXYGEN SATURATION 72.1 % (92.0-98.5); BG OXYHEMOGLOBIN 71.2 % (94.0-97.0); BG PCO2 54.9 mmHg (35.0-45.0); BG PH 7.276 (7.350-7.450); BG PO2 42.5 mmHg (75.0-100.0); BG SAMPLE SITE RIGHT BRACHIAL; BG TOTAL HEMOGLOBIN 16.7 g/dL (12.0-18.0); BG TOTAL RESPIRATORY RATE 35 b/min; BG VENT MODE VENT - AC
[2021-08-02 15:05] LABS: BG BASE EXCESS -3.4 mmol/L (-2.0-2.0); BG CARBOXYHEMOGLOBIN 0.9 % (0.5-1.5); BG DEOXYHEMOGLOBIN 13.2 % (0.0-5.0); BG FRACTION INSPIRED OXYGEN 100; BG HCO3 ACT 25.7 mmol/L (22.0-26.0); BG METHEMOGLOBIN 0.4 % (0.0-1.5); BG OXYGEN SATURATION 86.6 % (92.0-98.5); BG OXYHEMOGLOBIN 85.5 % (94.0-97.0); BG PCO2 62.1 mmHg (35.0-45.0); BG PH 7.234 (7.350-7.450); BG PO2 59.1 mmHg (75.0-100.0); BG SAMPLE SITE LEFT RADIAL; BG TOTAL HEMOGLOBIN 17.1 g/dL (12.0-18.0); BG TOTAL RESPIRATORY RATE 29 b/min; BG VENT MODE VENT - AC
[2021-08-03] VITALS (68 sets, daily range): BP systolic 66–135; BP diastolic 39–81
[2021-08-03] MEDS: MIDAZOLAM HCL 100 MG in SODIUM CHLORIDE 0.9% 80 ML IV PRN ×4 (03:03→22:19)
[2021-08-03] MEDS: FENTANYL CITRATE/PF 2,500 MCG in SODIUM CHLORIDE 0.9% 200 ML IV PRN (05:41)
[2021-08-03] MEDS: PHENYLEPHRINE 50 MG in DEXT 5% WATER 245 ML IV PRN (08:06)
[2021-08-03] MEDS: MEROPENEM 1,000 MG in SODIUM CHLORIDE 0.9% 100 ML IV SCH (08:12)
[2021-08-03] MEDS: FAMOTIDINE 20MG/2ML VIAL IV SCH (08:13)
[2021-08-03] MEDS: DEXAMETHASONE 4MG/ML 1ML VIAL IV SCH (08:13)
[2021-08-03] MEDS: ALBUTEROL 6.7GM HFA INHALER ORI SCH ×3 (08:26→21:40)
[2021-08-03] MEDS: MIDODRINE HCL 5MG TABLET PO SCH ×3 (08:41→17:00)
[2021-08-03 09:05] LABS: CHLORIDE 111 mEq/L (98-107)
[2021-08-03 09:08] LABS: HEMATOCRIT. 43.1 % (42.0-52.0); HEMOGLOBIN. 14.8 g/dL (14.0-18.0); MEAN CORPUSCULAR HEMOGLOBIN 29.4 pg (28.0-32.0); MEAN CORPUSCULAR VOLUME 85.4 fL (80.0-94.0); MEAN PLATELET VOLUME 7.4 fl (7.4-10.4); RED BLOOD CELL COUNT 5.04 mill/uL (4.7-6.1); RED CELL DISTRIBUTION WIDTH 16.6 % (11.6-14.6)
[2021-08-03 09:11] LABS: PHOSPHORUS 6.5 mg/dL (2.5-4.9)
[2021-08-03 09:54] LABS: BG BASE EXCESS -8.5 mmol/L (-2.0-2.0); BG DEOXYHEMOGLOBIN 13.1 % (0.0-5.0); BG FRACTION INSPIRED OXYGEN 100; BG HCO3 ACT 21.4 mmol/L (22.0-26.0); BG OXYGEN SATURATION 86.8 % (92.0-98.5); BG OXYHEMOGLOBIN 85.9 % (94.0-97.0); BG PH 7.156 (7.350-7.450); BG PO2 61.3 mmHg (75.0-100.0); BG SAMPLE SITE LEFT BRACHIAL; BG TOTAL HEMOGLOBIN 16.7 g/dL (12.0-18.0); BG TOTAL RESPIRATORY RATE 29 b/min; BG VENT MODE VENT - AC
[2021-08-03] MEDS ORDERED: SODIUM POLYSTYRENE SULFONATE 15 G/60 ML BOT PO ONE (10:00)
[2021-08-03] MEDS ORDERED: SODIUM POLYSTYRENE SULFONATE 15 G/60 ML BOT PO NR (10:00)
[2021-08-03 10:29] LABS: PLATELET ESTIMATE NORMAL
[2021-08-03 10:30] LABS: PLATELET 315 x1000/uL (130-400)
[2021-08-03] MEDS ORDERED: SODIUM BICARBONATE 8.4% 1 MEQ/ML 50ML SYR IV NR ×2 (10:30→14:30)
[2021-08-03] MEDS ORDERED: SODIUM BICARBONATE 8.4% 1 MEQ/ML 50ML SYR IV ONE (10:45)
[2021-08-03] MEDS ORDERED: SODIUM POLYSTYRENE SULFONATE 15 G/60 ML BOT ONE (10:47)
[2021-08-03] MEDS: PROPOFOL 10MG/ML 100ML 100 ML IV PRN (13:21)
[2021-08-03] MEDS: METOCLOPRAMIDE HCL 10MG/2ML VIAL IV SCH ×2 (13:21→18:47)
[2021-08-03 13:38] LABS: BG BASE EXCESS -3.6 mmol/L (-2.0-2.0); BG CARBOXYHEMOGLOBIN 0.9 % (0.5-1.5); BG DEOXYHEMOGLOBIN 9.3 % (0.0-5.0); BG FRACTION INSPIRED OXYGEN 100; BG HCO3 ACT 25.8 mmol/L (22.0-26.0); BG METHEMOGLOBIN 0.5 % (0.0-1.5); BG OXYGEN SATURATION 90.6 % (92.0-98.5); BG OXYHEMOGLOBIN 89.3 % (94.0-97.0); BG PCO2 64.3 mmHg (35.0-45.0); BG PH 7.221 (7.350-7.450); BG SAMPLE SITE LEFT RADIAL; BG TOTAL HEMOGLOBIN 16.5 g/dL (12.0-18.0); BG VENT MODE VENT - AC
[2021-08-03 18:39] LABS: BG BASE EXCESS -1.4 mmol/L (-2.0-2.0); BG CARBOXYHEMOGLOBIN 1.1 % (0.5-1.5); BG DEOXYHEMOGLOBIN 15.8 % (0.0-5.0); BG FRACTION INSPIRED OXYGEN 100; BG HCO3 ACT 26.1 mmol/L (22.0-26.0); BG METHEMOGLOBIN 0.3 % (0.0-1.5); BG OXYHEMOGLOBIN 82.8 % (94.0-97.0); BG PCO2 54.5 mmHg (35.0-45.0); BG PH 7.298 (7.350-7.450); BG PO2 52.5 mmHg (75.0-100.0); BG SAMPLE SITE RIGHT BRACHIAL; BG TOTAL HEMOGLOBIN 16.2 g/dL (12.0-18.0); BG VENT MODE VENT - AC
[2021-08-03] MEDS: MEROPENEM 500MG in NORMAL SALINE 50ML IV SCH (22:38)
[2021-08-04] VITALS (72 sets, daily range): BP systolic 102–145; BP diastolic 64–91
[2021-08-04] MEDS: METOCLOPRAMIDE HCL 10MG/2ML VIAL IV SCH ×4 (00:03→20:28)
[2021-08-04] MEDS: ALBUTEROL 6.7GM HFA INHALER ORI SCH (04:41)
[2021-08-04] MEDS: PHENYLEPHRINE 50 MG in DEXT 5% WATER 245 ML IV PRN (05:07)
[2021-08-04] MEDS: FENTANYL CITRATE/PF 2,500 MCG in SODIUM CHLORIDE 0.9% 200 ML IV PRN ×2 (05:07→18:35)
[2021-08-04 06:02] LABS: HEMOGLOBIN. 14.7 g/dL (14.0-18.0); MEAN CORPUSCULAR VOLUME 83.8 fL (80.0-94.0); MEAN PLATELET VOLUME 7.2 fl (7.4-10.4); PLATELET 296 x1000/uL (130-400); RED BLOOD CELL COUNT 5.24 mill/uL (4.7-6.1); RED CELL DISTRIBUTION WIDTH 16.8 % (11.6-14.6)
[2021-08-04 06:22] LABS: PHOSPHORUS 7.7 mg/dL (2.5-4.9)
[2021-08-04] MEDS: MIDAZOLAM HCL 100 MG in SODIUM CHLORIDE 0.9% 80 ML IV PRN (07:39)
[2021-08-04] MEDS: SODIUM CHLORIDE 0.45% 1,000 ML IV SCH ×3 (07:45→21:05)
[2021-08-04] MEDS ORDERED: SODIUM CHLORIDE 0.45% 250 ML IV NR (07:45)
[2021-08-04] MEDS: PROPOFOL 10MG/ML 100ML 100 ML IV PRN (08:16)
[2021-08-04] MEDS: MIDODRINE HCL 5MG TABLET PO SCH ×3 (09:00→17:00)
[2021-08-04 09:52] LABS: BG BASE EXCESS -2.3 mmol/L (-2.0-2.0); BG DEOXYHEMOGLOBIN 8.8 % (0.0-5.0); BG FRACTION INSPIRED OXYGEN 100; BG HCO3 ACT 26.6 mmol/L (22.0-26.0); BG METHEMOGLOBIN 0.2 % (0.0-1.5); BG OXYGEN SATURATION 91.1 % (92.0-98.5); BG PH 7.244 (7.350-7.450); BG SAMPLE SITE LEFT RADIAL; BG TOTAL HEMOGLOBIN 15.8 g/dL (12.0-18.0); BG VENT MODE VENT - AC
[2021-08-04 09:55] LABS: PLATELET ESTIMATE NORMAL
[2021-08-04] MEDS ORDERED: SODIUM BICARBONATE 8.4% 1 MEQ/ML 50ML SYR IV NR (10:30)
[2021-08-04] MEDS: DEXAMETHASONE 4MG/ML 1ML VIAL IV SCH (11:21)
[2021-08-04] MEDS: FAMOTIDINE 20MG/2ML VIAL IV SCH (11:21)
[2021-08-04] MEDS: MEROPENEM 500MG in NORMAL SALINE 50ML IV SCH ×2 (11:21→20:55)
[2021-08-04] MEDS ORDERED: SODIUM POLYSTYRENE SULFONATE 15 G/60 ML BOT PO NR (12:00)
[2021-08-05] VITALS (95 sets, daily range): BP systolic 89–125; BP diastolic 52–80
[2021-08-05] MEDS: METOCLOPRAMIDE HCL 10MG/2ML VIAL IV SCH ×4 (00:02→18:09)
[2021-08-05] MEDS: PROPOFOL 10MG/ML 100ML 100 ML IV PRN ×2 (00:23→15:14)
[2021-08-05] MEDS: FENTANYL CITRATE/PF 2,500 MCG in SODIUM CHLORIDE 0.9% 200 ML IV PRN ×2 (04:13→15:51)
[2021-08-05] MEDS: SODIUM CHLORIDE 0.45% 1,000 ML IV SCH ×3 (04:15→17:05)
[2021-08-05 05:06] LABS: HEMATOCRIT. 41.5 % (42.0-52.0); HEMOGLOBIN. 13.8 g/dL (14.0-18.0); MEAN CORPUSCULAR HEMOGLOBIN 27.9 pg (28.0-32.0); MEAN CORPUSCULAR VOLUME 83.9 fL (80.0-94.0); MEAN PLATELET VOLUME 7.3 fl (7.4-10.4); PLATELET 249 x1000/uL (130-400); RED BLOOD CELL COUNT 4.94 mill/uL (4.7-6.1); RED CELL DISTRIBUTION WIDTH 17.1 % (11.6-14.6)
[2021-08-05 05:36] LABS: CHLORIDE 111 mEq/L (98-107)
[2021-08-05] MEDS: MIDAZOLAM HCL 100 MG in SODIUM CHLORIDE 0.9% 80 ML IV PRN (06:16)
[2021-08-05] MEDS: DEXAMETHASONE 4MG/ML 1ML VIAL IV SCH (09:04)
[2021-08-05] MEDS: MEROPENEM 500MG in NORMAL SALINE 50ML IV SCH ×2 (09:04→22:41)
[2021-08-05] MEDS: FAMOTIDINE 20MG/2ML VIAL IV SCH (09:05)
[2021-08-05] MEDS: MIDODRINE HCL 5MG TABLET PO SCH ×3 (09:05→18:54)
[2021-08-05] MEDS: PHENYLEPHRINE 50 MG in DEXT 5% WATER 245 ML IV PRN (09:06)
[2021-08-05] MEDS: ALBUTEROL 6.7GM HFA INHALER ORI SCH ×2 (09:22→12:58)
[2021-08-05 11:06] LABS: PLATELET ESTIMATE NORMAL
[2021-08-05 14:56] LABS: BG BASE EXCESS -1.2 mmol/L (-2.0-2.0); BG CARBOXYHEMOGLOBIN 0.7 % (0.5-1.5); BG DEOXYHEMOGLOBIN 13.3 % (0.0-5.0); BG FRACTION INSPIRED OXYGEN 100; BG HCO3 ACT 26.1 mmol/L (22.0-26.0); BG METHEMOGLOBIN 0.3 % (0.0-1.5); BG OXYGEN SATURATION 86.6 % (92.0-98.5); BG OXYHEMOGLOBIN 85.7 % (94.0-97.0); BG PCO2 53.2 mmHg (35.0-45.0); BG PH 7.308 (7.350-7.450); BG PO2 56.5 mmHg (75.0-100.0); BG SAMPLE SITE RIGHT BRACHIAL; BG TOTAL HEMOGLOBIN 15.6 g/dL (12.0-18.0); BG VENT MODE VENT - AC
[2021-08-06] VITALS (96 sets, daily range): BP systolic 75–124; BP diastolic 44–75
[2021-08-06] MEDS: SODIUM CHLORIDE 0.45% 1,000 ML IV SCH ×3 (00:04→17:05)
[2021-08-06] MEDS: FENTANYL CITRATE/PF 2,500 MCG in SODIUM CHLORIDE 0.9% 200 ML IV PRN ×4 (00:04→23:01)
[2021-08-06] MEDS: MIDAZOLAM HCL 100 MG in SODIUM CHLORIDE 0.9% 80 ML IV PRN ×4 (01:15→22:10)
[2021-08-06] MEDS: METOCLOPRAMIDE HCL 10MG/2ML VIAL IV SCH ×4 (01:28→17:04)
[2021-08-06 05:49] LABS: HEMATOCRIT. 42.9 % (42.0-52.0); HEMOGLOBIN. 14.5 g/dL (14.0-18.0); MEAN CORPUSCULAR HEMOGLOBIN 28.1 pg (28.0-32.0); MEAN PLATELET VOLUME 7.5 fl (7.4-10.4); PLATELET 236 x1000/uL (130-400); RED BLOOD CELL COUNT 5.16 mill/uL (4.7-6.1); RED CELL DISTRIBUTION WIDTH 16.7 % (11.6-14.6)
[2021-08-06 05:53] LABS: CHLORIDE 112 mEq/L (98-107)
[2021-08-06] MEDS: FAMOTIDINE 20MG/2ML VIAL IV SCH (08:34)
[2021-08-06] MEDS: DEXAMETHASONE 4MG/ML 1ML VIAL IV SCH (08:34)
[2021-08-06] MEDS: MEROPENEM 500MG in NORMAL SALINE 50ML IV SCH ×2 (08:34→21:40)
[2021-08-06] MEDS: MIDODRINE HCL 5MG TABLET PO SCH ×3 (08:34→17:04)
[2021-08-06 08:48] LABS: BG BASE EXCESS -5.9 mmol/L (-2.0-2.0); BG CARBOXYHEMOGLOBIN 1.2 % (0.5-1.5); BG FRACTION INSPIRED OXYGEN 100; BG HCO3 ACT 22.2 mmol/L (22.0-26.0); BG METHEMOGLOBIN 0.3 % (0.0-1.5); BG OXYGEN SATURATION 75.6 % (92.0-98.5); BG OXYHEMOGLOBIN 74.5 % (94.0-97.0); BG PCO2 53.9 mmHg (35.0-45.0); BG PH 7.233 (7.350-7.450); BG PO2 46.2 mmHg (75.0-100.0); BG SAMPLE SITE RIGHT RADIAL; BG TOTAL HEMOGLOBIN 15.1 g/dL (12.0-18.0); BG VENT MODE VENT - AC
[2021-08-06 11:21] LABS: PLATELET ESTIMATE NORMAL
[2021-08-06] MEDS: PHENYLEPHRINE 50 MG in DEXT 5% WATER 245 ML IV PRN ×2 (13:13→20:36)
[2021-08-06] MEDS: ALBUTEROL 6.7GM HFA INHALER ORI SCH (19:52)
[2021-08-07] VITALS (97 sets, daily range): BP systolic 81–153; BP diastolic 43–111
[2021-08-07] MEDS: METOCLOPRAMIDE HCL 10MG/2ML VIAL IV SCH ×5 (00:56→23:16)
[2021-08-07] MEDS: SODIUM CHLORIDE 0.45% 1,000 ML IV SCH ×2 (00:57→20:29)
[2021-08-07] MEDS: PHENYLEPHRINE 50 MG in DEXT 5% WATER 245 ML IV PRN ×2 (02:58→15:18)
[2021-08-07] MEDS: MIDAZOLAM HCL 100 MG in SODIUM CHLORIDE 0.9% 80 ML IV PRN ×3 (05:37→18:41)
[2021-08-07 06:06] LABS: HEMATOCRIT. 41.9 % (42.0-52.0); HEMOGLOBIN. 13.9 g/dL (14.0-18.0); MEAN CORPUSCULAR VOLUME 84.5 fL (80.0-94.0); MEAN PLATELET VOLUME 7.7 fl (7.4-10.4); PLATELET 219 x1000/uL (130-400); RED BLOOD CELL COUNT 4.95 mill/uL (4.7-6.1); RED CELL DISTRIBUTION WIDTH 17.2 % (11.6-14.6)
[2021-08-07 06:38] LABS: PHOSPHORUS 8.5 mg/dL (2.5-4.9)
[2021-08-07] MEDS: FENTANYL CITRATE/PF 2,500 MCG in SODIUM CHLORIDE 0.9% 200 ML IV PRN ×3 (07:26→23:20)
[2021-08-07 08:16] LABS: BG BASE EXCESS -9.2 mmol/L (-2.0-2.0); BG CARBOXYHEMOGLOBIN 1.4 % (0.5-1.5); BG DEOXYHEMOGLOBIN 19.1 % (0.0-5.0); BG HCO3 ACT 20.6 mmol/L (22.0-26.0); BG OXYGEN SATURATION 80.6 % (92.0-98.5); BG OXYHEMOGLOBIN 79.5 % (94.0-97.0); BG PCO2 60.6 mmHg (35.0-45.0); BG PH 7.149 (7.350-7.450); BG PO2 49.2 mmHg (75.0-100.0); BG SAMPLE SITE LEFT RADIAL; BG TOTAL HEMOGLOBIN 15.4 g/dL (12.0-18.0); BG VENT MODE VENT - AC
[2021-08-07] MEDS ORDERED: LIDOCAINE HCL 1% 20ML VIAL (Pyxis) INJ ONE (08:29)
[2021-08-07] MEDS: FAMOTIDINE 20MG/2ML VIAL IV SCH (08:38)
[2021-08-07] MEDS: DEXAMETHASONE 4MG/ML 1ML VIAL IV SCH (08:38)
[2021-08-07] MEDS: MIDODRINE HCL 5MG TABLET PO SCH ×3 (08:38→16:39)
[2021-08-07] MEDS: MEROPENEM 500MG in NORMAL SALINE 50ML IV SCH ×2 (08:38→20:29)
[2021-08-07 10:32] LABS: NUCLEATED RED BLOOD CELLS 1 /100 WBC
[2021-08-07 10:33] LABS: PLATELET ESTIMATE NORMAL
[2021-08-07] MEDS ORDERED: SODIUM BICARBONATE 8.4% 1 MEQ/ML 50ML SYR IV NR ×2 (11:00→16:30)
[2021-08-07 15:18] LABS: BG CARBOXYHEMOGLOBIN 1.7 % (0.5-1.5); BG DEOXYHEMOGLOBIN 14.7 % (0.0-5.0); BG HCO3 ACT 25.7 mmol/L (22.0-26.0); BG METHEMOGLOBIN 0.2 % (0.0-1.5); BG OXYHEMOGLOBIN 83.4 % (94.0-97.0); BG PCO2 83.5 mmHg (35.0-45.0); BG PH 7.106 (7.350-7.450); BG PO2 59.3 mmHg (75.0-100.0); BG SAMPLE SITE RIGHT BRACHIAL; BG TOTAL HEMOGLOBIN 14.8 g/dL (12.0-18.0); BG VENT MODE VENT - AC
[2021-08-07] MEDS ORDERED: HEPARIN SODIUM 1,000 UNIT/1ML VIAL IV ONE (16:15)
[2021-08-07] MEDS ORDERED: PHENYLEPHRINE 100 MG in DEXT 5% WATER 240 ML IV PRN (18:15)
[2021-08-07 18:56] LABS: HEPATITIS B SURFACE ANTIGEN NEGATIVE
[2021-08-07] MEDS: ALBUTEROL 6.7GM HFA INHALER ORI SCH ×2 (21:00)
[2021-08-07] MEDS: SODIUM BICARBONATE 8.4% 1 MEQ/ML 50ML SYR IV SCH (22:08)
[2021-08-08] VITALS (96 sets, daily range): BP systolic 98–156; BP diastolic 62–103
[2021-08-08] MEDS: PHENYLEPHRINE 100 MG in DEXT 5% WATER 240 ML IV PRN ×3 (00:39→17:49)
[2021-08-08] MEDS: ALBUTEROL 6.7GM HFA INHALER ORI SCH ×2 (00:48→20:17)
[2021-08-08] MEDS: MIDAZOLAM HCL 100 MG in SODIUM CHLORIDE 0.9% 80 ML IV PRN ×4 (01:43→23:49)
[2021-08-08] MEDS: SODIUM BICARBONATE 8.4% 1 MEQ/ML 50ML SYR IV SCH ×4 (04:23→21:34)
[2021-08-08] MEDS: METOCLOPRAMIDE HCL 10MG/2ML VIAL IV SCH ×4 (06:00→23:46)
[2021-08-08] MEDS: FENTANYL CITRATE/PF 2,500 MCG in SODIUM CHLORIDE 0.9% 200 ML IV PRN ×3 (06:51→21:34)
[2021-08-08] MEDS: FAMOTIDINE 20MG/2ML VIAL IV SCH (08:19)
[2021-08-08] MEDS: DEXAMETHASONE 4MG/ML 1ML VIAL IV SCH (08:19)
[2021-08-08] MEDS: MEROPENEM 500MG in NORMAL SALINE 50ML IV SCH ×2 (08:19→20:13)
[2021-08-08] MEDS: MIDODRINE HCL 5MG TABLET PO SCH ×3 (08:20→16:27)
[2021-08-08 08:56] LABS: BG BASE EXCESS -1.2 mmol/L (-2.0-2.0); BG CARBOXYHEMOGLOBIN 1.6 % (0.5-1.5); BG FRACTION INSPIRED OXYGEN 100; BG HCO3 ACT 29.6 mmol/L (22.0-26.0); BG METHEMOGLOBIN 0.3 % (0.0-1.5); BG OXYGEN SATURATION 87.8 % (92.0-98.5); BG OXYHEMOGLOBIN 86.1 % (94.0-97.0); BG PCO2 81.2 mmHg (35.0-45.0); BG PO2 60.6 mmHg (75.0-100.0); BG SAMPLE SITE RIGHT BRACHIAL; BG TOTAL HEMOGLOBIN 14.9 g/dL (12.0-18.0); BG VENT MODE VENT - AC
[2021-08-08 10:15] LABS: HEMATOCRIT. 42.2 % (42.0-52.0); HEMOGLOBIN. 13.8 g/dL (14.0-18.0); MEAN CORPUSCULAR HEMOGLOBIN 27.8 pg (28.0-32.0); MEAN CORPUSCULAR VOLUME 84.7 fL (80.0-94.0); MEAN PLATELET VOLUME 7.5 fl (7.4-10.4); PLATELET 166 x1000/uL (130-400); RED BLOOD CELL COUNT 4.98 mill/uL (4.7-6.1); RED CELL DISTRIBUTION WIDTH 17.4 % (11.6-14.6)
[2021-08-08 13:08] LABS: NUCLEATED RED BLOOD CELLS 2 /100 WBC
[2021-08-08 13:09] LABS: PLATELET ESTIMATE NORMAL
[2021-08-08] MEDS ORDERED: VANCOMYCIN 2,000 MG in DEXT 5% WATER 500 ML IV SCH (17:00)
[2021-08-08] MEDS: SODIUM CHLORIDE 0.45% 1,000 ML IV SCH (18:59)
[2021-08-09] VITALS (96 sets, daily range): BP systolic 99–145; BP diastolic 58–87
[2021-08-09] MEDS: ALBUTEROL 6.7GM HFA INHALER ORI SCH (04:10)
[2021-08-09] MEDS: SODIUM BICARBONATE 8.4% 1 MEQ/ML 50ML SYR IV SCH ×4 (04:36→23:04)
[2021-08-09] MEDS: METOCLOPRAMIDE HCL 10MG/2ML VIAL IV SCH ×2 (05:00→12:02)
[2021-08-09] MEDS: MIDAZOLAM HCL 100 MG in SODIUM CHLORIDE 0.9% 80 ML IV PRN ×3 (05:27→18:53)
[2021-08-09] MEDS: FENTANYL CITRATE/PF 2,500 MCG in SODIUM CHLORIDE 0.9% 200 ML IV PRN ×3 (05:44→21:03)
[2021-08-09 06:15] LABS: CHLORIDE 110 mEq/L (98-107)
[2021-08-09 06:17] LABS: HEMATOCRIT. 39.1 % (42.0-52.0); HEMOGLOBIN. 12.8 g/dL (14.0-18.0); MEAN CORPUSCULAR HEMOGLOBIN 27.5 pg (28.0-32.0); MEAN CORPUSCULAR VOLUME 84.1 fL (80.0-94.0); PLATELET 155 x1000/uL (130-400); RED BLOOD CELL COUNT 4.64 mill/uL (4.7-6.1); RED CELL DISTRIBUTION WIDTH 17.4 % (11.6-14.6)
[2021-08-09] MEDS: DEXTROSE 5% WATER 1,000 ML IV SCH (07:59)
[2021-08-09 08:22] LABS: BG CARBOXYHEMOGLOBIN 1.6 % (0.5-1.5); BG DEOXYHEMOGLOBIN 9.4 % (0.0-5.0); BG HCO3 ACT 28.2 mmol/L (22.0-26.0); BG METHEMOGLOBIN 0.2 % (0.0-1.5); BG OXYGEN SATURATION 90.4 % (92.0-98.5); BG OXYHEMOGLOBIN 88.8 % (94.0-97.0); BG PCO2 62.2 mmHg (35.0-45.0); BG PH 7.274 (7.350-7.450); BG PO2 65.4 mmHg (75.0-100.0); BG SAMPLE SITE RIGHT RADIAL; BG TOTAL HEMOGLOBIN 13.6 g/dL (12.0-18.0); BG VENT MODE VENT - AC
[2021-08-09 08:23] LABS: PLATELET ESTIMATE NORMAL
[2021-08-09] MEDS: DEXAMETHASONE 4MG/ML 1ML VIAL IV SCH (08:30)
[2021-08-09] MEDS: MEROPENEM 500MG in NORMAL SALINE 50ML IV SCH ×2 (08:30→21:02)
[2021-08-09] MEDS: FAMOTIDINE 20MG/2ML VIAL IV SCH (08:30)
[2021-08-09] MEDS: MIDODRINE HCL 5MG TABLET PO SCH ×3 (08:30→16:06)
[2021-08-09] MEDS ORDERED: SODIUM BICARBONATE 8.4% 1 MEQ/ML 50ML SYR IV NR (11:15)
[2021-08-09] MEDS: MICAFUNGIN 150 MG in SODIUM CHLORIDE 0.9% 100 ML IV SCH (14:57)
[2021-08-09] MEDS ORDERED: DOCUSATE SODIUM SUGAR FREE 100MG/10ML UDC PO PRN (16:15)
[2021-08-10] VITALS (99 sets, daily range): BP systolic 110–173; BP diastolic 62–103
[2021-08-10] MEDS: MIDAZOLAM HCL 100 MG in SODIUM CHLORIDE 0.9% 80 ML IV PRN ×4 (02:25→23:32)
[2021-08-10] MEDS: DEXTROSE 5% WATER 1,000 ML IV SCH (03:11)
[2021-08-10] MEDS: SODIUM BICARBONATE 8.4% 1 MEQ/ML 50ML SYR IV SCH ×2 (03:59→10:30)
[2021-08-10] MEDS: FENTANYL CITRATE/PF 2,500 MCG in SODIUM CHLORIDE 0.9% 200 ML IV PRN ×3 (05:21→20:23)
[2021-08-10 05:31] LABS: CHLORIDE 108 mEq/L (98-107); HEMATOCRIT. 35.9 % (42.0-52.0); HEMOGLOBIN. 12.1 g/dL (14.0-18.0); MEAN CORPUSCULAR HEMOGLOBIN 27.9 pg (28.0-32.0); MEAN CORPUSCULAR VOLUME 82.4 fL (80.0-94.0); MEAN PLATELET VOLUME 7.4 fl (7.4-10.4); PLATELET 158 x1000/uL (130-400); RED BLOOD CELL COUNT 4.35 mill/uL (4.7-6.1); RED CELL DISTRIBUTION WIDTH 16.4 % (11.6-14.6)
[2021-08-10 08:00] LABS: PLATELET ESTIMATE NORMAL
[2021-08-10] MEDS: MEROPENEM 500MG in NORMAL SALINE 50ML IV SCH ×2 (08:16→21:20)
[2021-08-10] MEDS: DEXAMETHASONE 4MG/ML 1ML VIAL IV SCH (08:17)
[2021-08-10] MEDS: FAMOTIDINE 20MG/2ML VIAL IV SCH (08:17)
[2021-08-10] MEDS: MIDODRINE HCL 5MG TABLET PO SCH ×2 (08:18→13:00)
[2021-08-10 08:54] LABS: BG BASE EXCESS 11.2 mmol/L (-2.0-2.0); BG DEOXYHEMOGLOBIN 8.9 % (0.0-5.0); BG FRACTION INSPIRED OXYGEN 100; BG HCO3 ACT 36.4 mmol/L (22.0-26.0); BG METHEMOGLOBIN 0.1 % (0.0-1.5); BG PCO2 50.1 mmHg (35.0-45.0); BG PH 7.479 (7.350-7.450); BG SAMPLE SITE RIGHT RADIAL; BG TOTAL HEMOGLOBIN 12.3 g/dL (12.0-18.0); BG VENT MODE VENT - AC
[2021-08-10] MEDS: ALBUTEROL 6.7GM HFA INHALER ORI SCH ×2 (09:15→14:45)
[2021-08-10] MEDS ORDERED: MIDODRINE HCL 5MG TABLET PO PRN (13:45)
[2021-08-10] MEDS ORDERED: ENOXAPARIN 100MG/ML SYR SUBCUT SCH (14:00)
[2021-08-10] MEDS: MICAFUNGIN 150 MG in SODIUM CHLORIDE 0.9% 100 ML IV SCH (14:29)
[2021-08-10] MEDS ORDERED: HEPARIN SODIUM 1,000 UNIT/1ML VIAL IV ONE (16:45)
[2021-08-10] MEDS ORDERED: VANCOMYCIN 1 G PREMIX 200 ML IV NR (18:00)
[2021-08-10] MEDS: ACETAMINOPHEN 325MG TABLET PO PRN (20:00)
[2021-08-10] MEDS: DILTIAZEM HCL 125 MG in DEXT 5% WATER 100 ML IV PRN (21:33)
[2021-08-10] MEDS ORDERED: HEPARIN SODIUM 1,000 UNIT/1ML VIAL IV NR (22:45)
[2021-08-11] VITALS (94 sets, daily range): BP systolic 79–125; BP diastolic 38–67
[2021-08-11] MEDS: FENTANYL CITRATE/PF 2,500 MCG in SODIUM CHLORIDE 0.9% 200 ML IV PRN ×3 (03:27→20:49)
[2021-08-11 05:22] LABS: HEMATOCRIT. 36.2 % (42.0-52.0); HEMOGLOBIN. 12.2 g/dL (14.0-18.0); MEAN CORPUSCULAR HEMOGLOBIN 27.9 pg (28.0-32.0); MEAN CORPUSCULAR VOLUME 83.1 fL (80.0-94.0); MEAN PLATELET VOLUME 7.3 fl (7.4-10.4); PLATELET 144 x1000/uL (130-400); RED BLOOD CELL COUNT 4.36 mill/uL (4.7-6.1); RED CELL DISTRIBUTION WIDTH 16.2 % (11.6-14.6)
[2021-08-11] MEDS: MIDAZOLAM HCL 100 MG in SODIUM CHLORIDE 0.9% 80 ML IV PRN ×3 (06:55→21:19)
[2021-08-11 07:59] LABS: BG BASE EXCESS 2.6 mmol/L (-2.0-2.0); BG CARBOXYHEMOGLOBIN 2.2 % (0.5-1.5); BG DEOXYHEMOGLOBIN 23.3 % (0.0-5.0); BG HCO3 ACT 31.3 mmol/L (22.0-26.0); BG METHEMOGLOBIN 0.2 % (0.0-1.5); BG OXYGEN SATURATION 76.1 % (92.0-98.5); BG OXYHEMOGLOBIN 74.3 % (94.0-97.0); BG PH 7.275 (7.350-7.450); BG PO2 45.3 mmHg (75.0-100.0); BG SAMPLE SITE RIGHT FEMORAL; BG TOTAL HEMOGLOBIN 13.2 g/dL (12.0-18.0); BG VENT MODE VENT - AC
[2021-08-11] MEDS: ALBUTEROL 6.7GM HFA INHALER ORI SCH ×3 (08:55→21:10)
[2021-08-11] MEDS: DEXAMETHASONE 4MG/ML 1ML VIAL IV SCH (09:23)
[2021-08-11] MEDS: MEROPENEM 500MG in NORMAL SALINE 50ML IV SCH ×2 (09:23→20:58)
[2021-08-11] MEDS: FAMOTIDINE 20MG/2ML VIAL IV SCH (09:23)
[2021-08-11] MEDS ORDERED: VANCOMYCIN 1 G PREMIX 200 ML IV SCH (10:00)
[2021-08-11 10:04] LABS: PLATELET ESTIMATE NORMAL
[2021-08-11] MEDS: ENOXAPARIN 100MG/ML SYR SUBCUT SCH (10:31)
[2021-08-11] MEDS: ACETAMINOPHEN 325MG TABLET PO PRN ×2 (12:35→17:14)
[2021-08-11] MEDS: DEXTROSE 5% WATER 1,000 ML IV SCH (12:36)
[2021-08-11] MEDS: MICAFUNGIN 150 MG in SODIUM CHLORIDE 0.9% 100 ML IV SCH (17:11)
[2021-08-12] VITALS (95 sets, daily range): BP systolic 54–135; BP diastolic 23–82
[2021-08-12] MEDS: DEXTROSE 5% WATER 1,000 ML IV SCH ×3 (00:38→14:09)
[2021-08-12] MEDS: ALBUTEROL 6.7GM HFA INHALER ORI SCH ×4 (00:46→20:06)
[2021-08-12 05:51] LABS: HEMATOCRIT. 34.8 % (42.0-52.0); HEMOGLOBIN. 11.6 g/dL (14.0-18.0); MEAN CORPUSCULAR HEMOGLOBIN 28.1 pg (28.0-32.0); MEAN CORPUSCULAR VOLUME 84.4 fL (80.0-94.0); MEAN PLATELET VOLUME 7.8 fl (7.4-10.4); PLATELET 140 x1000/uL (130-400); RED BLOOD CELL COUNT 4.12 mill/uL (4.7-6.1); RED CELL DISTRIBUTION WIDTH 16.7 % (11.6-14.6)
[2021-08-12 05:55] LABS: PHOSPHORUS 7.9 mg/dL (2.5-4.9)
[2021-08-12] MEDS: FENTANYL CITRATE/PF 2,500 MCG in SODIUM CHLORIDE 0.9% 200 ML IV PRN ×3 (06:02→22:03)
[2021-08-12] MEDS: MIDAZOLAM HCL 100 MG in SODIUM CHLORIDE 0.9% 80 ML IV PRN ×3 (06:02→21:53)
[2021-08-12 07:34] LABS: PLATELET ESTIMATE NORMAL
[2021-08-12 08:17] LABS: BG BASE EXCESS 0.6 mmol/L (-2.0-2.0); BG DEOXYHEMOGLOBIN 12.5 % (0.0-5.0); BG FRACTION INSPIRED OXYGEN 100; BG HCO3 ACT 29.6 mmol/L (22.0-26.0); BG METHEMOGLOBIN 0.2 % (0.0-1.5); BG OXYGEN SATURATION 87.2 % (92.0-98.5); BG OXYHEMOGLOBIN 85.3 % (94.0-97.0); BG PCO2 69.9 mmHg (35.0-45.0); BG PH 7.245 (7.350-7.450); BG SAMPLE SITE RIGHT RADIAL; BG TOTAL HEMOGLOBIN 12.9 g/dL (12.0-18.0); BG TOTAL RESPIRATORY RATE 36 b/min; BG VENT MODE VENT - AC
[2021-08-12] MEDS: ENOXAPARIN 100MG/ML SYR SUBCUT SCH (10:05)
[2021-08-12] MEDS: DEXAMETHASONE 4MG/ML 1ML VIAL IV SCH (10:05)
[2021-08-12] MEDS: FAMOTIDINE 20MG/2ML VIAL IV SCH (10:05)
[2021-08-12] MEDS: MEROPENEM 500MG in NORMAL SALINE 50ML IV SCH ×2 (10:05→20:05)
[2021-08-12 13:08] LABS: HEPATITIS B SURFACE ANTIGEN NEGATIVE
[2021-08-12 13:46] LABS: BG BASE EXCESS -0.8 mmol/L (-2.0-2.0); BG CARBOXYHEMOGLOBIN 2.3 % (0.5-1.5); BG DEOXYHEMOGLOBIN 16.9 % (0.0-5.0); BG FRACTION INSPIRED OXYGEN 100; BG HCO3 ACT 28.7 mmol/L (22.0-26.0); BG METHEMOGLOBIN 0.3 % (0.0-1.5); BG OXYGEN SATURATION 82.6 % (92.0-98.5); BG OXYHEMOGLOBIN 80.5 % (94.0-97.0); BG PCO2 72.2 mmHg (35.0-45.0); BG PH 7.217 (7.350-7.450); BG SAMPLE SITE RIGHT RADIAL; BG TOTAL HEMOGLOBIN 13.1 g/dL (12.0-18.0); BG TOTAL RESPIRATORY RATE 32 b/min; BG VENT MODE VENT - AC
[2021-08-12] MEDS: MICAFUNGIN 150 MG in SODIUM CHLORIDE 0.9% 100 ML IV SCH (14:09)
[2021-08-12] MEDS ORDERED: SODIUM BICARBONATE 8.4% 1 MEQ/ML 50ML SYR IV NR (15:30)
[2021-08-12] MEDS: CALCIUM CARBONATE 1,250 MG/5 ML UDC PO SCH (17:11)
[2021-08-12] MEDS: PHENYLEPHRINE 100 MG in DEXT 5% WATER 240 ML IV PRN (19:42)
[2021-08-13] VITALS (95 sets, daily range): BP systolic 102–132; BP diastolic 67–87
[2021-08-13] MEDS ORDERED: MIDAZOLAM 100MG/100ML PMX 100 ML IV PRN (01:00)
[2021-08-13] MEDS: ALBUTEROL 6.7GM HFA INHALER ORI SCH ×2 (01:06→21:15)
[2021-08-13] MEDS: DEXTROSE 5% WATER 1,000 ML IV SCH (04:21)
[2021-08-13 05:25] LABS: HEMATOCRIT. 38.9 % (42.0-52.0); HEMOGLOBIN. 12.5 g/dL (14.0-18.0); MEAN CORPUSCULAR HEMOGLOBIN 27.5 pg (28.0-32.0); MEAN CORPUSCULAR VOLUME 85.5 fL (80.0-94.0); PLATELET 182 x1000/uL (130-400); RED BLOOD CELL COUNT 4.55 mill/uL (4.7-6.1)
[2021-08-13] MEDS: MIDAZOLAM HCL 100 MG in SODIUM CHLORIDE 0.9% 100 ML IV PRN ×3 (06:27→19:38)
[2021-08-13] MEDS: FENTANYL CITRATE/PF 2,500 MCG in SODIUM CHLORIDE 0.9% 200 ML IV PRN ×3 (06:28→20:36)
[2021-08-13] MEDS: CALCIUM CARBONATE 1,250 MG/5 ML UDC PO SCH ×3 (07:00→16:22)
[2021-08-13] MEDS: ENOXAPARIN 120MG/0.8ML SYR SUBCUT SCH (08:39)
[2021-08-13] MEDS: DEXAMETHASONE 4MG/ML 1ML VIAL IV SCH (08:40)
[2021-08-13] MEDS: FAMOTIDINE 20MG/2ML VIAL IV SCH (08:40)
[2021-08-13 10:03] LABS: BG BASE EXCESS -0.9 mmol/L (-2.0-2.0); BG CARBOXYHEMOGLOBIN 2.6 % (0.5-1.5); BG DEOXYHEMOGLOBIN 19.6 % (0.0-5.0); BG FRACTION INSPIRED OXYGEN 100; BG HCO3 ACT 29.3 mmol/L (22.0-26.0); BG METHEMOGLOBIN 0.2 % (0.0-1.5); BG OXYGEN SATURATION 79.8 % (92.0-98.5); BG OXYHEMOGLOBIN 77.6 % (94.0-97.0); BG PCO2 76.2 mmHg (35.0-45.0); BG PH 7.203 (7.350-7.450); BG PO2 48.1 mmHg (75.0-100.0); BG SAMPLE SITE RIGHT RADIAL; BG TOTAL HEMOGLOBIN 14.5 g/dL (12.0-18.0); BG VENT MODE VENT - AC
[2021-08-13 10:14] LABS: NUCLEATED RED BLOOD CELLS 1 /100 WBC; PLATELET ESTIMATE NORMAL
[2021-08-13] MEDS ORDERED: VANCOMYCIN 750 MG PREMIX 150 ML IV SCH (11:00)
[2021-08-13] MEDS ORDERED: SODIUM BICARBONATE 8.4% 1 MEQ/ML 50ML SYR IV SCH (11:15)
[2021-08-13] MEDS: METOCLOPRAMIDE HCL 10MG/2ML VIAL IV SCH ×2 (11:28→17:00)
[2021-08-13] MEDS: MICAFUNGIN 150 MG in SODIUM CHLORIDE 0.9% 100 ML IV SCH (13:15)
[2021-08-13 17:41] LABS: BG BASE EXCESS 0.8 mmol/L (-2.0-2.0); BG CARBOXYHEMOGLOBIN 2.6 % (0.5-1.5); BG DEOXYHEMOGLOBIN 19.9 % (0.0-5.0); BG FRACTION INSPIRED OXYGEN 100; BG HCO3 ACT 30.5 mmol/L (22.0-26.0); BG METHEMOGLOBIN 0.3 % (0.0-1.5); BG OXYGEN SATURATION 79.5 % (92.0-98.5); BG OXYHEMOGLOBIN 77.2 % (94.0-97.0); BG PCO2 75.3 mmHg (35.0-45.0); BG PH 7.226 (7.350-7.450); BG PO2 49.2 mmHg (75.0-100.0); BG SAMPLE SITE RIGHT RADIAL; BG TOTAL HEMOGLOBIN 13.9 g/dL (12.0-18.0); BG VENT MODE VENT - AC
[2021-08-14] VITALS (74 sets, daily range): BP systolic 20–148; BP diastolic 12–99
[2021-08-14] MEDS: DEXTROSE 5% WATER 1,000 ML IV SCH ×2 (00:17→12:26)
[2021-08-14] MEDS: METOCLOPRAMIDE HCL 10MG/2ML VIAL IV SCH ×4 (00:17→17:26)
[2021-08-14] MEDS: FENTANYL CITRATE/PF 2,500 MCG in SODIUM CHLORIDE 0.9% 200 ML IV PRN (05:08)
[2021-08-14] MEDS: CALCIUM CARBONATE 1,250 MG/5 ML UDC PO SCH ×2 (05:59→17:00)
[2021-08-14 07:05] LABS: HEMATOCRIT. 37.5 % (42.0-52.0); HEMOGLOBIN. 12.1 g/dL (14.0-18.0); INR 1.1; MEAN CORPUSCULAR HEMOGLOBIN 27.6 pg (28.0-32.0); MEAN CORPUSCULAR VOLUME 85.7 fL (80.0-94.0); MEAN PLATELET VOLUME 7.9 fl (7.4-10.4); PLATELET 187 x1000/uL (130-400); RED BLOOD CELL COUNT 4.37 mill/uL (4.7-6.1); RED CELL DISTRIBUTION WIDTH 17.3 % (11.6-14.6)
[2021-08-14 07:52] LABS: PHOSPHORUS 7.3 mg/dL (2.5-4.9)
[2021-08-14] MEDS: MIDAZOLAM HCL 100 MG in SODIUM CHLORIDE 0.9% 100 ML IV PRN (08:09)
[2021-08-14] MEDS: ALBUTEROL 6.7GM HFA INHALER ORI SCH ×3 (08:57→20:40)
[2021-08-14] MEDS: FAMOTIDINE 20MG/2ML VIAL IV SCH (09:01)
[2021-08-14] MEDS: ENOXAPARIN 120MG/0.8ML SYR SUBCUT SCH (09:02)
[2021-08-14] MEDS ORDERED: DEXTROSE 50% WATER 50ML SYRINGE IV ONE (09:57)
[2021-08-14] MEDS ORDERED: ATROPINE SULFATE 1MG/10ML SYR ONE (09:57)
[2021-08-14] MEDS ORDERED: CALCIUM CHLORIDE 1GM/10ML SYR IV ONE (09:57)
[2021-08-14] MEDS ORDERED: EPINEPHRINE 0.1MG/ML (1:10,000) 10ML SYR ONE (09:57)
[2021-08-14] MEDS ORDERED: SODIUM BICARBONATE 8.4% 1 MEQ/ML 50ML SYR IV ONE (09:57)
[2021-08-14 11:21] LABS: BG BASE EXCESS 0.3 mmol/L (-2.0-2.0); BG CARBOXYHEMOGLOBIN 2.4 % (0.5-1.5); BG METHEMOGLOBIN 0.1 % (0.0-1.5); BG OXYHEMOGLOBIN 57.5 % (94.0-97.0); BG PCO2 66.2 mmHg (35.0-45.0); BG PO2 33.8 mmHg (75.0-100.0); BG SAMPLE SITE RIGHT RADIAL; BG TOTAL HEMOGLOBIN 13.9 g/dL (12.0-18.0); BG VENT MODE VENT - AC
[2021-08-14] MEDS: DEXAMETHASONE 4MG/ML 1ML VIAL IV SCH (11:47)
[2021-08-14] MEDS ORDERED: ATROPINE SULFATE 1MG/10ML SYR IV ONE ×2 (13:30)
[2021-08-14] MEDS ORDERED: DOPAMINE 800MG PREMIX (DOUBLE) 250 ML IV PRN (13:30)
[2021-08-14] MEDS: MICAFUNGIN 150 MG in SODIUM CHLORIDE 0.9% 100 ML IV SCH (14:00)
[2021-08-14 14:18] LABS: BG BASE EXCESS -15.6 mmol/L (-2.0-2.0); BG CARBOXYHEMOGLOBIN 2.5 % (0.5-1.5); BG DEOXYHEMOGLOBIN 50.9 % (0.0-5.0); BG HCO3 ACT 18.5 mmol/L (22.0-26.0); BG METHEMOGLOBIN 0.3 % (0.0-1.5); BG OXYGEN SATURATION 47.6 % (92.0-98.5); BG OXYHEMOGLOBIN 46.3 % (94.0-97.0); BG PCO2 90.6 mmHg (35.0-45.0); BG PH 6.928 (7.350-7.450); BG PO2 38.2 mmHg (75.0-100.0); BG SAMPLE SITE RIGHT RADIAL; BG TOTAL HEMOGLOBIN 13.9 g/dL (12.0-18.0); BG VENT MODE VENT - AC
[2021-08-14] MEDS ORDERED: SODIUM BICARBONATE 8.4% 1 MEQ/ML 50ML SYR IV SCH (15:15)
[2021-08-14] MEDS ORDERED: DEXTROSE 5% IV SCH (16:00)
[2021-08-14] MEDS ORDERED: WATER IV SCH (16:00)
[2021-08-14] MEDS ORDERED: SODIUM BICARBONATE IV SCH (16:00)
[2021-08-14 16:47] LABS: BG BASE EXCESS -10.7 mmol/L (-2.0-2.0); BG CARBOXYHEMOGLOBIN 2.6 % (0.5-1.5); BG DEOXYHEMOGLOBIN 38.7 % (0.0-5.0); BG HCO3 ACT 20.7 mmol/L (22.0-26.0); BG METHEMOGLOBIN 0.3 % (0.0-1.5); BG OXYGEN SATURATION 60.1 % (92.0-98.5); BG OXYHEMOGLOBIN 58.4 % (94.0-97.0); BG PCO2 72.8 mmHg (35.0-45.0); BG PH 7.072 (7.350-7.450); BG PO2 40.4 mmHg (75.0-100.0); BG SAMPLE SITE RIGHT RADIAL; BG TOTAL HEMOGLOBIN 14.8 g/dL (12.0-18.0); BG VENT MODE VENT - AC
[2021-08-14 17:50] LABS: HEMATOCRIT. 44.7 % (42.0-52.0); HEMOGLOBIN. 13.6 g/dL (14.0-18.0); MEAN CORPUSCULAR HEMOGLOBIN 27.6 pg (28.0-32.0); MEAN CORPUSCULAR VOLUME 90.8 fL (80.0-94.0); MEAN PLATELET VOLUME 7.9 fl (7.4-10.4); PLATELET 222 x1000/uL (130-400); RED BLOOD CELL COUNT 4.93 mill/uL (4.7-6.1)
[2021-08-14 18:03] LABS: CHLORIDE 105 mEq/L (98-107)
[2021-08-14 18:12] LABS: CREATINE KINASE 280 IU/L (39-308)
[2021-08-14 18:14] LABS: CREATINE KINASE MB FRACTION 7.2 ng/mL (0.5-3.6)
[2021-08-14 18:59] LABS: PLATELET ESTIMATE NORMAL
[2021-08-14 19:26] LABS: NUCLEATED RED BLOOD CELLS 1 /100 WBC; PLATELET ESTIMATE NORMAL
[2021-08-14] MEDS: PHENYLEPHRINE 100 MG in DEXT 5% WATER 240 ML IV PRN (21:09)
[2021-08-14] MEDS ORDERED: VASOPRESSIN 20 UNIT in SODIUM CHLORIDE 0.9% 99 ML IV PRN (22:15)
== END 2021-08-14 22:28 | DRG 870 ==
LOC: ER 20:48 → MICUSO 07-24 00:04 → EDBEDREQDT 07-24 00:39 → EDBEDREQTM 07-24 00:39 → EDBEDREQ 07-24 00:39 → EDBEDREQSVC 07-24 00:39 → MICUSO 07-24 10:58 → 7WST 07-25 14:51 → MICUSO 07-28 12:45
PROVIDERS: ADMIT Internal Medicine; ATTEND Internal Medicine
PROC: 5A1955Z Respiratory Ventilation, Greater than 96 Consecutive Hours (ICD-10-PCS; principal; 2021-07-28)
PROC: 0BH17EZ Insertion of Endotracheal Airway into Trachea, Via Natural or Artificial Opening (ICD-10-PCS; 2021-07-28)
PROC: 05HY33Z Insertion of Infusion Device into Upper Vein, Percutaneous Approach (ICD-10-PCS; 2021-07-29)
PROC: B54MZZA Ultrasonography of Right Upper Extremity Veins, Guidance (ICD-10-PCS; 2021-07-29)
PROC: 02HV33Z Insertion of Infusion Device into Superior Vena Cava, Percutaneous Approach (ICD-10-PCS; 2021-08-07)
PROC: B548ZZA Ultrasonography of Superior Vena Cava, Guidance (ICD-10-PCS; 2021-08-07)
PROC: 5A1D70Z Performance of Urinary Filtration, Intermittent, Less than 6 Hours Per Day (ICD-10-PCS; 2021-08-10)
PROC: 0BH17EZ Insertion of Endotracheal Airway into Trachea, Via Natural or Artificial Opening (ICD-10-PCS; 2021-08-11)
PROC: 5A1945Z Respiratory Ventilation, 24-96 Consecutive Hours (ICD-10-PCS; 2021-08-11)
PROC: 5A1D70Z Performance of Urinary Filtration, Intermittent, Less than 6 Hours Per Day (ICD-10-PCS; 2021-08-13)
PROC: 5A2204Z Restoration of Cardiac Rhythm, Single (ICD-10-PCS; 2021-08-14)
PROC: 5A12012 Performance of Cardiac Output, Single, Manual (ICD-10-PCS; 2021-08-14)
DX: A41.89 Other specified sepsis (principal); U07.1 COVID-19; J12.82 Pneumonia due to coronavirus disease 2019; G93.41 Metabolic encephalopathy; J80 Acute respiratory distress syndrome; N17.0 Acute kidney failure with tubular necrosis; D68.59 Other primary thrombophilia; E44.0 Moderate protein-calorie malnutrition; E87.2 Acidosis; E87.0 Hyperosmolality and hypernatremia; I12.9 Hypertensive chronic kidney disease with stage 1 through stage 4 chronic kidney disease, or unspecified chronic kidney disease; N18.30 Chronic kidney disease, stage 3 unspecified; N40.0 Benign prostatic hyperplasia without lower urinary tract symptoms; I49.01 Ventricular fibrillation; R74.01 Elevation of levels of liver transaminase levels; E87.5 Hyperkalemia; R33.9 Retention of urine, unspecified; Z86.73 Personal history of transient ischemic attack (TIA), and cerebral infarction without residual deficits; Z79.899 Other long term (current) drug therapy; Z79.01 Long term (current) use of anticoagulants; Z82.49 Family history of ischemic heart disease and other diseases of the circulatory system; Z68.39 Body mass index [BMI] 39.0-39.9, adult
CPT/HCPCS: 31500; 36415; 36600; 71045; 74018; 76770; 76937; 78580; 80048; 80053; 80061; 80202; 80305; 81003; 82330; 82375; 82550; 82553; 82728; 82784; 82805; 82962; 83605; 83615; 83735; 83880; 84100; 84132; 84145; 84153; 84439; 84443; 84478; 84484; 85025; 85379; 86141; 86334; 86705; 86709; 86803; 87070; 87106; 87107; 87340; 87426; 92950; 93005; 93970; 94002; 94003; 94640; 99291; A6261; C1725; C1752; J0330; J0360; J0456; J0461; J0696; J1100; J1200; J1265; J1644; J1650; J1940; J2060; J2185; J2248; J2250; J2370; J2543; J2704; J2765; J3010; J3370; J3475; J3490; J7030; J7040; J7050; J7060; J7070; U0003; U0005; A4315; G0103